=== PATIENT | female | born 1990 | race Caucasian/White ===

== ENCOUNTER 2020-08-31 11:14 | Outpatient (REF) | payer OTHER, SELFPAY ==
--- NOTE | 2020-08-31 11:17 | XR_ITS ---
EXAMINATION: XR KNEE, LEFT CLINICAL INFORMATION: Displaced bicondylar fracture of left tibia. COMPARISON: 06/30/2020 and 04/06/2020 TECHNIQUE: AP and lateral views of the left knee. FINDINGS: There is osteopenia of visualized bones. There is a minimal left knee effusion. Left knee joint spaces are maintained. The bicondylar tibial plateau fracture shows some sclerosis and no change in alignment or displacement compared to previous study. XR/XR knee LT 2V IMPRESSION: Evidence for healing of left tibial plateau fracture.
== END 2020-08-31 11:15 | disposition home or self-care (01) ==
LOC: HO.XRAY 11:14
PROVIDERS: Visit Provider Physician Assistant
DX: S82.142D Displaced bicondylar fracture of left tibia, subsequent encounter for closed fracture with routine healing (principal); X58.XXXD Exposure to other specified factors, subsequent encounter
CPT/HCPCS: 73560; 99213

== ENCOUNTER 2020-09-22 15:54 | Outpatient (REF) | payer OTHER, SELFPAY ==
--- NOTE | 2020-09-22 16:00 | MR_ITS ---
EXAMINATION: MR KNEE WITHOUT CONTRAST, LEFT CLINICAL INFORMATION: Displaced bicondylar fracture of the tibia. COMPARISON: Radiographs dated 08/31/2020 TECHNIQUE: MRI of the knee without contrast was performed using routine sequences on a high-field scanner. FINDINGS: MENISCI: Medial Meniscus: Intact Lateral Meniscus: Intact LIGAMENTS: Cruciate: ACL is intact. There is mild ACL laxity. PCL is normal. Collateral: Intact EXTENSOR MECHANISM: Insall-Salvati ratio is 1.45, indicating borderline patella patsy. Focal edema signal is present in the inferolateral aspect of the prefemoral fat pad. Hoffa's fat pad is unremarkable. ARTICULAR CARTILAGE/BONE: Again seen is an avulsion fracture at the tibial spines with slight cephalad displacement of the fracture fragments anteriorly and depression at the posterior margin of the lateral tibial plateau. The fracture line appears less pronounced as compared to prior studies, although there is mild residual edema signal along it. Osseous bridging is evident across the fracture site. Patellofemoral Compartment: Normal Medial Compartment: There is a longitudinal chondral fissure along the oblique tibial articular cortical fracture line at the medial margin of the medial tibial spine. Lateral Compartment: There is focal depression and posterior downsloping of the posterior margin of the lateral tibial plateau without a significant articular cortical step-off. Overlying articular cartilage is intact. The fracture line at the lateral tibial spine abuts the articular cortex along its far anterior margin, though the lateral compartment is otherwise relatively well preserved. JOINT FLUID AND BURSAE: Trace effusion. No bursitis. MR/MR knee LT wo con IMPRESSION: 1. Healing avulsion fracture at the tibial spines with a chondral fissure along the fracture line at the lateral aspect of the medial tibial plateau articular surface. 2. Healed articular cortical depression deformity at the posterior margin of the lateral tibial plateau. 3. Mild laxity of the ACL, consistent with the tibial spine avulsion injury. No tears. 4. Borderline patella patsy.
== END 2020-09-22 15:55 | disposition home or self-care (01) ==
LOC: HO.MRI 15:54
PROVIDERS: Visit Provider Physician Assistant
DX: S82.143D Displaced bicondylar fracture of unspecified tibia, subsequent encounter for closed fracture with routine healing (principal)
CPT/HCPCS: 73721

== ENCOUNTER 2020-10-09 16:00 | Outpatient (RCR) | payer OTHER, SELFPAY ==
--- NOTE | 2020-11-07 10:13 | MHC.PT.DC ---
[facility] [place] Office [place] Office [place] [facility] [address] Matilde Rahman [address] [phone] F: [phone] F: [phone] F: [phone] F: [phone] Physical Therapy Discharge Report Diagnosis: Closed fx L tibial plateau Date of Surgery: NA Date of Evaluation: 05/23/20 Date of Discharge: 11/07/20 Treatments to Date: 27 Cancellations to Date: 2 No Shows to Date: 0 Discharge Status: Achieved Goals Improved Function Independent with HEP Discharge Summary: Patient with normal ROM. She demos normal gait as well. She has some quad weakness however at this point should be able to continue HEP on own at home or at the gym as she has had 27 visits. No skilled PT is needed at this time. Educated her on healing processes after fx and the importance of continuing to strengthen on own. DC to HEP at this time. Updated HEP at the last tx session. Kept chart open for 30 days in case patient needed assist with HEP. Electronically signed by: Jessica Mckenzie PT Please sign and return to therapist. Thank you for your referral.
== END 2020-11-07 10:13 | disposition home or self-care (01) ==
LOC: HO.PTCHIC 16:00
PROVIDERS: PCP Internal Medicine; Visit Provider Physician Assistant
DX: S82.142D Displaced bicondylar fracture of left tibia, subsequent encounter for closed fracture with routine healing (principal)
CPT/HCPCS: 97110

== ENCOUNTER 2020-11-06 10:38 | Outpatient (REF) | payer OTHER, SELFPAY ==
--- NOTE | 2020-11-06 10:44 | XR_ITS ---
EXAMINATION: XR WRIST, RIGHT CLINICAL INFORMATION: Right wrist pain COMPARISON: None TECHNIQUE: The right wrist is imaged in 3 views. FINDINGS: There is no visible acute or healing fracture, dislocation, or destructive process. The ulnar variance is neutral. The pronator quadratus fat pad appears normal. There is no joint narrowing or erosive change. No chondrocalcinosis. XR/XR wrist RT 2V IMPRESSION: Unremarkable right wrist.
[2020-11-06 12:11] LABS: MANUAL DIFF FLAG NO
[2020-11-06 12:13] LABS: Basophils Percent Auto 0.3 % (0-2); Eosinophils Absolute Auto 0.1 X10*3/uL (0.0-0.4); Eosinophils Percent Auto 1.9 % (0-4); Hematocrit 43.1 % (37-47); Imm Gran Abs Auto 0.02 X10*3/uL (0.00-0.03); Imm Gran Pct Auto 0.3 % (0.0-0.4); Lymphocytes Absolute Auto 2.6 X10*3/uL (1.2-4.9); Lymphocytes Percent Auto 37.6 % (20-40); Mean Corpuscular HGB Conc 32.5 g/dl (31.0-35.0); Mean Corpuscular Hemoglobin 30.3 pg (27.0-33.0); Mean Corpuscular Volume 93.3 fL (80-98); Mean Platelet Volume 10.7 fL (9.4-12.3); Monocytes Absolute Auto 0.4 X10*3/uL (0.1-1.2); Monocytes Percent Auto 5.7 % (2-11); Neutrophils Absolute Auto 3.7 X10*3/uL (2.0-8.3); Neutrophils Percent Auto 54.2 % (45-73); Platelet Count 278 X10*3/uL (160-400); Red Blood Count 4.62 X10*6/uL (4.20-5.50); Red Cell Distribution Width 12.6 % (11.0-16.0); White Blood Count 6.8 X10*3/uL (4.8-10.8)
[2020-11-06 12:35] LABS: Anion Gap 11 (12-20); Blood Urea Nitrogen 13 mg/dL (9-16); Calcium 8.5 mg/dL (8.4-10.2); Carbon Dioxide 25 mmol/L (22-29); Chloride 107 mmol/L (96-108); Cholesterol 171 mg/dL; Estimated Glomerular Filt Rate > 60; Glucose Fasting 102 mg/dL (60-99); HDL Cholesterol 38 mg/dL; LDL Cholesterol Calculated 109 mg/dl; Potassium 4.2 mmol/l (3.3-5.1); Sodium 139 mmol/L (135-145); Triglycerides 120 mg/dL
== END 2020-11-06 10:39 | disposition home or self-care (01) ==
LOC: HO.LAB 10:38
PROVIDERS: Visit Provider Nurse Practitioner Family
DX: Z00.00 Encounter for general adult medical examination without abnormal findings (principal); Z13.220 Encounter for screening for lipoid disorders; M25.531 Pain in right wrist
CPT/HCPCS: 36415; 73100; 80048; 80061; 85025

== ENCOUNTER 2021-02-20 08:32 | Outpatient (REF) | payer OTHER, SELFPAY | END 2021-02-20 08:33 | disposition home or self-care (01) | LOC: HO.LAB 08:32 | PROVIDERS: Visit Provider Nurse Practitioner Family | DX: A60.09 Herpesviral infection of other urogenital tract (principal); J02.9 Acute pharyngitis, unspecified | CPT/HCPCS: 87071; 87147; 87255 ==

== ENCOUNTER 2021-02-20 08:54 | Outpatient (REF) | payer OTHER, SELFPAY ==
[2021-02-20 11:29] LABS: Monotest Negative (Negative)
[2021-02-21 09:31] LABS: EBV-VCA IgG Ab >750.00 U/mL; EBV-VCA IgM Ab <36.00 U/mL
== END 2021-02-20 08:55 | disposition home or self-care (01) ==
LOC: HO.HMGCLDS 08:54
PROVIDERS: Visit Provider Nurse Practitioner Family
DX: J02.9 Acute pharyngitis, unspecified (principal)
CPT/HCPCS: 36415; 86308; 86664; 86665

== ENCOUNTER 2021-03-16 11:22 | Outpatient (REF) | payer OTHER, SELFPAY ==
[2021-03-17 11:58] LABS: BV Int Neg Control Negative (Negative); BV Int Pos Control Positive (Positive)
== END 2021-03-16 11:23 | disposition home or self-care (01) ==
LOC: HO.LNP 11:22
PROVIDERS: Visit Provider Hospitalist
DX: N89.8 Other specified noninflammatory disorders of vagina (principal)
CPT/HCPCS: 87480; 87510; 87660

== ENCOUNTER 2021-04-18 08:04 | Outpatient (REF) | payer OTHER, SELFPAY ==
[2021-04-18 14:00] LABS: CT PCR NOT DETECTED (Not Detect.); NG PCR NOT DETECTED (Not Detect.)
[2021-04-19 09:39] LABS: BV Int Neg Control Negative (Negative); BV Int Pos Control Positive (Positive)
[2021-04-22 14:11] LABS: HPV 16 RNA NOT DETECTED (NOT DETECTED); HPV mRNA E6/E7 rflx Detected (Not Detected)
== END 2021-04-18 08:05 | disposition home or self-care (01) ==
LOC: HO.LAB 08:04
PROVIDERS: PCP Internal Medicine; Visit Provider Advanced Practice Midwife
DX: Z01.411 Encounter for gynecological examination (general) (routine) with abnormal findings (principal); Z11.51 Encounter for screening for human papillomavirus (HPV); N89.8 Other specified noninflammatory disorders of vagina; A60.09 Herpesviral infection of other urogenital tract; G43.909 Migraine, unspecified, not intractable, without status migrainosus; Z20.2 Contact with and (suspected) exposure to infections with a predominantly sexual mode of transmission
CPT/HCPCS: 87480; 87491; 87510; 87591; 87624; 87625; 87660; 88142

== ENCOUNTER 2021-09-05 09:24 | Outpatient (REF) | payer OTHER, SELFPAY ==
[2021-09-05 11:58] LABS: Alanine Aminotransferase 17 U/L (0-31); Aspartate Amino Transferase 16 U/L (5-31); Cholesterol 178 mg/dL; Glucose Fasting 93 mg/dL (60-99); HDL Cholesterol 34 mg/dL; LDL Cholesterol Calculated 125 mg/dl; Triglycerides 95 mg/dL
[2021-09-05 12:22] LABS: TSH reflex Free T4 1.05 uIU/mL (0.32-4.0)
== END 2021-09-05 09:25 | disposition home or self-care (01) ==
LOC: HO.HMGCLDS 09:24
PROVIDERS: PCP Internal Medicine; Visit Provider Internal Medicine
DX: Z00.01 Encounter for general adult medical examination with abnormal findings (principal); R73.01 Impaired fasting glucose; Z80.8 Family history of malignant neoplasm of other organs or systems
CPT/HCPCS: 36415; 80061; 82947; 84443; 84450; 84460

== ENCOUNTER 2021-09-18 16:49 | Emergency (ER) | payer OTHER, SELFPAY ==
[2021-09-18 17:08] VITALS: BP 114/78; PULSE 88; RESP 16; TEMP 36.8; O2SAT 99; BMI 39.6
--- NOTE | 2021-09-18 19:26 | ED.SKABFB ---
HPI - Skin/Abscess/Foreign Bdy General Chief complaint: Skin/Abscess/Foreign Body <KATIE Villar - Last Filed: 09/18/21 20:16> Stated complaint: abscess on back <KATIE Villar - Last Filed: 09/18/21 20:16> Time Seen by Provider: 09/18/21 18:03 <KATIE Villar - Last Filed: 09/18/21 20:16> Source: patient <KATIE Villar - Last Filed: 09/18/21 20:16> Mode of arrival: ambulatory <KATIE Villar - Last Filed: 09/18/21 20:16> Limitations: no limitations <KATIE Villar Last Filed: 09/18/21 20:16> History of Present Illness HPI narrative: 31-year-old female pmhx significant for recurring yeast infection, morbid obesity presents to the emergency department with complaints of vaginal discharge, an abscess to the right lower back X 6 days. Patient states both of these have been going on since Friday of last week. Patient states she was recently treated for yeast infection with Diflucan, however it has not gone away. She describes thick white/yellow vaginal discharge. She also notes vaginal odor. She states that 6 days ago she also developed an abscess to the right lower back, that has been progressively worsening in severity, in size. Patient denies fevers, chills, shortness of breath, nausea, vomiting, abdominal pain, chest pain, shortness of breath, weakness, urinary frequency/urgency. Patient does not think she has an STI, she states she is not sexually active. <KATIE Villar - Last Filed: 09/18/21 20:16> MD complaint: abscess/boil <KATIE Villar - Last Filed: 09/18/21 20:16> Onset (ago): day(s) (6) <KATIE Villar Last Filed: 09/18/21 20:16> Tetanus up to date: unsure <KATIE Villar Last Filed: 09/18/21 20:16> Location: back <KATIE Villar - Last Filed: 09/18/21 20:16> Severity: severe <KATIE Villar - Last Filed: 09/18/21 20:16> Severity scale (1-10): 10 <KATIE Villar - Last Filed: 09/18/21 20:16> Quality: burning <KATIE Villar - Last Filed: 09/18/21 20:16> Pain Consistency: constant <KATIE Villar - Last Filed: 09/18/21 20:16> Relieving factors: none <KATIE Villar - Last Filed: 09/18/21 20:16> Exacerbating factors: none <KATIE Villar - Last Filed: 09/18/21 20:16> Context: none <KATIE Villar - Last Filed: 09/18/21 20:16> Treatments prior to arrival: none and other (Fluconazole 100 mg X2 prescribed on 09/12/21) <KATIE Villar - Last Filed: 09/18/21 20:16> Related Data Home medications: Home Medications Medication Instructions Recorded Confirmed etonogestrel 68 mg subdermal SUBDERMAL 09/29/20 09/05/21 implant (Nexplanon) Previous Rx's Medication Instructions Recorded cetirizine 10 mg tablet 10 mg PO DAILY 30 Days #30 tab 04/10/21 valacyclovir 500 mg tablet 500 mg PO BID 3 Days #60 tab 04/18/21 (Valtrex) diclofenac sodium 1 % topical gel 4 g TOPICAL TID PRN #100 g 07/20/21 ibuprofen 800 mg tablet 800 mg PO Q12H PRN #60 tab 07/20/21 fluconazole 100 mg tablet 100 mg PO DAILY 2 Days #2 tab 09/12/21 (Diflucan) cephalexin 500 mg capsule 500 mg PO Q6H 10 Days #40 cap 09/18/21 doxycycline hyclate 100 mg capsule 100 mg PO BID 10 Days #20 cap 09/18/21 fluconazole 150 mg tablet 150 mg PO ONCE 1 Days #1 tab 09/18/21 metronidazole 500 mg tablet 500 mg PO BID 7 Days #14 tab 09/18/21 <KATIE Villar - Last Filed: 09/18/21 20:16> Allergies/Adverse reactions: Allergies Allergy/AdvReac Type Severity Reaction Status Date / Time SEASONAL ALLERGIES Allergy Unknown UNKNOWN Uncoded 09/18/21 18:02 <KATIE Villar - Last Filed: 09/18/21 20:16> Review of Systems Review of Systems: Constitutional : No Weight loss, No Fever, No Chills, No Fatigue, No Malaise ENT/Mouth : No sore throat, No Rhinorrhea Eyes: No Eye Pain, No Swelling, No Redness Cardiovascular : No Chest Pain, No SOB, No Dyspnea on Exertion, No Orthopnea, No Edema, No Palpitations Respiratory : No Cough, No Sputum, No Wheezing Gastrointestinal : No Nausea, No Vomiting, No Diarrhea, No Constipation, No abdominal Pain, No Hematochezia, No Melena Genitourinary : No Dysuria, No Urinary Frequency, No Hematuria, + vaginal discharge Musculoskeletal : No joint pain, No Myalgias, No Joint Swelling Skin : No Skin Lesions, No rash, + abcess Neuro : No Weakness, No Numbness, No Dizziness, No Headache All other systems reviewed and are negative <KATIE Villar - Last Filed: 09/18/21 20:16> [facility] Past Medical History Attestation statement: The following information was validated with the patient. <KATIE Villar - Last Filed: 09/18/21 20:16> Source: old records reviewed and nursing notes reviewed <KATIE Villar - Last Filed: 09/18/21 20:16> Medical History: Medical History Acne comedone Family history of thyroid cancer Impaired fasting glucose Left anterior knee pain Migraines Morbid obesity Nasal congestion Nose disorder Tension type headache Wrist pain, right <KATIE Villar - Last Filed: 09/18/21 20:16> Surgical History: Surgical History No pertinent past surgical history <KATIE Villar Last Filed: 09/18/21 20:16> Family History Family History: Family History Father No problems noted. Mother Hypertension Maternal Grandfather Alzheimers disease Parkinsons Sister Acute Crohn's disease with complication Diabetes mellitus Maternal Grandmother Skin cancer Thyroid cancer Brother Mental health disorder <KATIE Villar - Last Filed: 09/18/21 20:16> Social History Social History: Social History (Reviewed 09/05/21 @ 09: by Mary Agarwal MD) Housing: Apartment Patient Tobacco Use Status: Never used Tobacco e-Cigarette/Vaping Use: Never Used Second Hand Smoke Exposure: No Advance Directives: No Advance Directives Information Provided: No Patient : No service: No Current occupational status: employed <KATIE Villar - Last Filed: 09/18/21 20:16> Physical Exam Vital Signs: Vital Signs: Last Vital Signs Temp 98.5 F 09/18/21 20:03 Pulse 101 H 09/18/21 20:03 Resp 18 09/18/21 20:03 BP 118/69 09/18/21 20:03 Pulse Ox 98 09/18/21 20:03 Body Mass Index 39.6 <KATIE Villar - Last Filed: 09/18/21 20:16> Vital Signs: Last Vital Signs Temp 98.5 F 09/18/21 20:03 Pulse 101 H 09/18/21 20:03 Resp 18 09/18/21 20:03 BP 118/69 09/18/21 20:03 Pulse Ox 98 09/18/21 20:03 Body Mass Index 39.6 <KATIE Last - Last Filed: 09/18/21 19:56> Appearance: Alert.? Oriented X3.? No acute distress.? Eyes: Pupils equal, round and reactive to light.? ENT: Pharynx normal.? Neck: Normal inspection.? Neck supple.? CVS: Normal heart rate and rhythm.? Pulses normal.? Respiratory: No respiratory distress.? Breath sounds normal.? Abdomen: Soft and nontender.? Skin: Skin warm and dry.? Normal skin color.? Normal skin turgor.?+ Abscess noted to the right lower back about 5 cm in diameter with overlying skin erythema and slight calor, fluctuant upon palpation Extremities: No lower extremity edema.? No calf ttp Neuro: Oriented X 3.? No motor deficit.? No sensory deficit. <KATIE Villar Last Filed: 09/18/21 20:16> Course Course Course Narrative: I agree with this provider's history and physical/review of systems/orders/diagnosis/procedure and treatment plan for Bolivar Cortez PA-C <KATIE Last - Last Filed: 09/18/21 19:56> Reevaluation(s) Reevaluation #1: Incision and drainage was done at the bedside, serosanguineous fluid, and possibly about 10 cc were expressed. Patient tolerated procedure well, no complications. There is no packing put in. Labs revealed positive Trichomonas. Discharged home on doxycycline and Keflex for prophylaxis. And she will be given metronidazole p.o. b.i.d. 500 mg to cover for Trichomonas. Gonorrhea and chlamydia pending, she will be called only with positive results. She has been advised to follow-up with her primary care provider and return to the emergency department with new or worsening symptoms such as fevers, chills, shortness of breath, chest pain, abdominal pain, worsening pain to the site, or streaking. <KATIE Villar Last Filed: 09/18/21 20:16> Time: 19:35 <KATIE Villar Last Filed: 09/18/21 20:16> Reevaluation #2: Urine shows 3+ leukocyte esterase, negative nitrates, urine negative. Patient is safe for discharge home <KATIE Villar Last Filed: 09/18/21 20:16> Time: 20:13 <KATIE Villar Last Filed: 09/18/21 20:16> MDM - Skin/Abscess/Foreign Bdy MDM Narrative Medical decision making narrative: 1918 31-year-old female past medical history significant for obesity, and recurring yeast infections presents to the emergency department with vaginal discharge, and an abscess to the right lower back x6 days. Patient took Diflucan 100 mg p.o. x2 on 09/12/2021 without relief. Patient states she is not sexually activ. Patient denies fevers, chills, shortness of breath, abdominal pain, nausea, vomiting, chest pain. Upon physical examination an abcess noted to the right lower back about 5 cm in diameter with overlying skin erythema and slight calor, fluctuant upon palpation. Lungs are clear to auscultation bilaterally. S1-S2 appreciated free of murmurs. Abdomen soft nontender nondistended. No CVA tenderness. Patient deferred vaginal exam, she states she is not sexually active, and does not believe she has an STD. Plan at this time is to obtain gonorrhea, chlamydia, Trichomonas, BV, urine, urine and do a bedside incision and drainage. <KATIE Villar - Last Filed: 09/18/21 20:16> Lab Data Labs: Lab Results 09/18/21 09/18/21 Range/Units 20:04 20:04 Urine Color YELLOW Urine Appearance CLOUDY Urine pH 6.0 (5.0-8.0) Ur Specific [place] 1.025 (1.005-1.025) Urine Protein NEG (NEG-TRACE) MG/DL Urine Glucose (UA) NEG (NEG) MG/DL Urine Ketones NEG (NEG) MG/DL Urine Blood TRACE (NEG) Urine Nitrite NEG (NEG) Ur Leukocyte Esterase 3+ H (NEG) Urine Test NEGATIVE (NEGATIVE) <KATIE Villar - Last Filed: 09/18/21 20:16> Lab Results 09/18/21 09/18/21 Range/Units 20:04 20:04 Urine Color YELLOW Urine Appearance CLOUDY Urine pH 6.0 (5.0-8.0) Ur Specific [place] 1.025 (1.005-1.025) Urine Protein NEG (NEG-TRACE) MG/DL Urine Glucose (UA) NEG (NEG) MG/DL Urine Ketones NEG (NEG) MG/DL Urine Blood TRACE (NEG) Urine Nitrite NEG (NEG) Ur Leukocyte Esterase 3+ H (NEG) Urine Test NEGATIVE (NEGATIVE) <KATIE Last - Last Filed: 09/18/21 19:56> Procedures Abscess I/D Site: back <KATIE Villar Last Filed: 09/18/21 20:16> Local Anesthetic: lidocaine 1% <KATIE Villar - Last Filed: 09/18/21 20:16> Amount of anesthesia used (mL): 5 <KATIE Villar - Last Filed: 09/18/21 20:16> Technique: incised with blade <KATIE Villar - Last Filed: 09/18/21 20:16> Amount of fluid expressed (mL): 10 <KATIE Villar - Last Filed: 09/18/21 20:16> Sent for culture/gram staining?: No <KATIE Villar - Last Filed: 09/18/21 20:16> Irrigation: Yes <KATIE Villar - Last Filed: 09/18/21 20:16> Packing used?: none <KATIE Villar - Last Filed: 09/18/21 20:16> Discharge Plan Discharge Clinical Impression: Infection due to trichomonas, Cellulitis, Abscess <KATIE Villar - Last Filed: 09/18/21 20:16> Patient Disposition: Home, Self-Care <KATIE Villar - Last Filed: 09/18/21 20:16> Instructions: Sexually Transmitted Diseases (ED), Trichomoniasis (ED) <KATIE Villar - Last Filed: 09/18/21 20:16> Additional Instructions: Take your medications as prescribed. If you were prescribed antibiotics today, it is important that you take your medication to their entirety, do not skip any doses, do not finish them early. Your gonorrhea, and chlamydia tests are still pending at this time, ypu will only receive a phone call if these are positive. Take ibuprofen every 6 hours, tylenol every 4 hours. Follow-up with your primary care provider this week. Return to the emergency department with new or worsening symptoms. In case of emergency call 911 <KATIE Villar - Last Filed: 09/18/21 20:16> Prescriptions: New cephalexin 500 mg capsule 500 mg PO Q6H 10 Days Qty: 40 RF: 0 doxycycline hyclate 100 mg capsule 100 mg PO BID 10 Days Qty: 20 RF: 0 metronidazole 500 mg tablet 500 mg PO BID 7 Days Qty: 14 RF: 0 fluconazole 150 mg tablet 150 mg PO ONCE 1 Days Qty: 1 RF: 0 No Action cetirizine 10 mg tablet 10 mg PO DAILY 30 Days Qty: 30 RF: 0 diclofenac sodium 1 % gel 4 g topical TID PRN (Reason: knee pain) Qty: 100 RF: 0 ibuprofen 800 mg tablet 800 mg PO Q12H PRN (Reason: pain) Qty: 60 RF: 0 Nexplanon 68 mg implant subdermal RF: 0 fluconazole [Diflucan] 100 mg tablet 100 mg PO DAILY 2 Days Qty: 2 RF: 0 valacyclovir [Valtrex] 500 mg tablet 500 mg PO BID 3 Days Qty: 60 RF: 5 <KATIE Villar - Last Filed: 09/18/21 20:16> Referrals: Physician,Unknown J [Primary Care Provider] - 2 days <KATIE Villar - Last Filed: 09/18/21 20:16> Stand Alone Forms: Work/School Release <KATIE Villar - Last Filed: 09/18/21 20:16>
[2021-09-18] MEDS: Lidocaine HCl 1 % MPF 5 ML VIAL SUBCUT ×2 (19:33→19:34)
[2021-09-18] MEDS: Ketorolac Tromethamine 15 MG/ML VIAL 30 MG IM (19:48)
[2021-09-18 20:03] VITALS: BP 118/69; PULSE 101; RESP 18; TEMP 36.9; O2SAT 98
[2021-09-18 20:11] LABS: Appearance Urine CLOUDY; Color Urine YELLOW; Glucose Urine UA NEG (NEG); Leukocyte Esterase Urine 3+ (NEG); Nitrite Urine NEG (NEG); Specific Gravity - Urine 1.025 (1.005-1.025); UACC Culture Trigger YES; Urine Blood TRACE (NEG); Urine Ketones NEG (NEG); Urine Protein NEG (NEG-TRACE)
[2021-09-18 20:12] LABS: UPreg QC Valid YES; Urine Pregnancy NEGATIVE (NEGATIVE)
[2021-09-18 20:15] LABS: Bacteria Urine TRACE /LPF; Mucus Urine 2+ /LPF; Renal Epithelial Cells Urine TRACE /LPF; Squamous Epithelial Cell Urine 2+ /LPF
[2021-09-19 03:11] LABS: CT PCR NOT DETECTED (Not Detect.); NG PCR NOT DETECTED (Not Detect.)
[2021-09-19 10:01] LABS: BV Int Neg Control Negative (Negative); BV Int Pos Control Positive (Positive)
== END 2021-09-18 20:34 | disposition home or self-care (01) ==
PROVIDERS: Physician Assistant Medical; Emergency Provider Emergency Medicine
DX: A59.9 Trichomoniasis, unspecified (principal); L03.312 Cellulitis of back [any part except buttock and flank]; L02.212 Cutaneous abscess of back [any part, except buttock and flank]; E66.01 Morbid (severe) obesity due to excess calories
CPT/HCPCS: 10060; 81001; 81025; 87086; 87480; 87491; 87510; 87591; 87660; 96372; 99284; J1885

== ENCOUNTER 2021-10-14 06:44 | Emergency (ER) | payer OTHER, SELFPAY ==
[2021-10-14 06:46] VITALS: BP 107/62; PULSE 95; RESP 16; TEMP 36.7; O2SAT 97; BMI 37.9
[2021-10-14 07:19] LABS: COVID-19 Test Negative (Negative); IDNOW Serial# 9DD0AD1C; Strep A Nucleic Acid Negative (Negative)
[2021-10-14] MEDS: predniSONE 20 MG TABLET 60 MG PO (09:34)
[2021-10-14] MEDS: Penicillin V Potassium 250 MG TABLET 500 MG PO (09:34)
--- NOTE | 2021-10-14 12:09 | ED_ITS ---
HPI - URI/Sore Throat General Chief Complaint: Upper Respiratory Symptoms Stated Complaint: possible strep throat Time Seen by Provider: 10/14/21 08:37 Source: patient Mode of arrival: ambulatory Limitations: no limitations History of Present Illness HPI Narrative: 31-year-old female with a history of strep throat presents with 8/10 sore throat that started yesterday. Patient has also had a mild cough and nasal congestion. Patient states she can swallow fluids and solids, but hurts to swallow. Patient is able to open her mouth all the way. MD elicited complaint: sore throat Onset (ago): day(s) (1) Consistency: constant Severity: severe Pain scale (0-10): 8 Able to tolerate fluids by mouth: Yes Exacerbating factors: swallowing Relieving factors: nothing Associated symptoms: chills, headache, nasal congestion, sore throat and cough Treatments prior to arrival: none Related Data Home Medications Medication Instructions Recorded Confirmed etonogestrel 68 mg subdermal SUBDERMAL 09/29/20 09/26/21 implant (Nexplanon) Previous Rx's Medication Instructions Recorded cetirizine 10 mg tablet 10 mg PO DAILY 30 Days #30 tab 04/10/21 valacyclovir 500 mg tablet 500 mg PO BID 3 Days #60 tab 04/18/21 (Valtrex) diclofenac sodium 1 % topical gel 4 g TOPICAL TID PRN #100 g 07/20/21 ibuprofen 800 mg tablet 800 mg PO Q12H PRN #60 tab 07/20/21 cephalexin 500 mg capsule 500 mg PO Q6H 10 Days #40 cap 09/18/21 doxycycline hyclate 100 mg capsule 100 mg PO BID 10 Days #20 cap 09/18/21 fluconazole 150 mg tablet 150 mg PO ONCE 1 Days #1 tab 09/18/21 metronidazole 500 mg tablet 500 mg PO BID 7 Days #14 tab 09/18/21 nystatin-triamcinolone 100,000 1 appl TOPICAL BID 10 Days #30 g 09/26/21 unit/g-0.1 % topical cream sertraline 50 mg tablet 50 mg PO DAILY #30 tab 09/26/21 penicillin V potassium 500 mg 500 mg PO TID 10 Days #30 tab 10/14/21 tablet prednisone 20 mg tablet 60 mg PO DAILY 5 Days #15 tab 10/14/21 Allergies Allergy/AdvReac Type Severity Reaction Status Date / Time SEASONAL ALLERGIES Allergy Unknown UNKNOWN Uncoded 09/18/21 18:02 Review of Systems Constitutional: Constitutional: Denies body ache(s), Reports chills, Reports fatigue, Denies fever(s), Reports headache(s), Reports malaise and Denies weakness Eyes: Eyes: Denies diplopia ENT: Denies vertigo, Denies dizziness, Reports otalgia, Reports headache(s), Denies mouth pain, Reports nasal congestion, Reports nasal discharge, Reports post nasal drip, Denies sinus pain, Denies sinus pressure, Reports sore throat and Denies throat swelling Cardiovascular: Cardiovascular: Denies chest pain, Denies syncope, Denies leg edema, Denies lightheadedness, Denies Loss of Consciousness, Denies palpitations and Denies dyspnea Respiratory: Respiratory: Denies chest congestion, Reports cough and Denies dyspnea Gastrointestinal: Gastrointestinal: Denies abdominal pain, Denies hematochezia, Denies constipation, Denies diarrhea and Denies vomiting Musculoskeletal: Musculoskeletal: Reports no additional musculoskeletal complaints Neurologic: Denies confusion, Denies vertigo, Denies dizziness, Denies syncope, Reports headache(s) and Denies weakness Psychiatric: Psychiatric: Denies anxiety, Denies confusion and Denies depression Endocrine: Endocrine: Reports fatigue and Denies palpitations Allergic/Immunologic: Allergic/Immunologic: Denies throat swelling PMFSH Past Medical History Medical History Acne comedone Depression with anxiety Family history of thyroid cancer History of abscess of skin and subcutaneous tissue Impaired fasting glucose Left anterior knee pain Migraines Morbid obesity Nasal congestion Nose disorder Tension type headache Wrist pain, right Surgical History No pertinent past surgical history Family History Family History Father No problems noted. Mother Hypertension Maternal Grandfather Alzheimers disease Parkinsons Sister Acute Crohn's disease with complication Diabetes mellitus Maternal Grandmother Skin cancer Thyroid cancer Brother Mental health disorder Social History Social History Housing: Apartment Patient Tobacco Use Status: Never used Tobacco e-Cigarette/Vaping Use: Never Used Second Hand Smoke Exposure: No Advance Directives: No Advance Directives Information Provided: Yes Patient : No service: No Current occupational status: employed Physical Exam Vital Signs: Vital Signs: Last Vital Signs Temp 98.0 F 10/14/21 06:46 Pulse 95 10/14/21 06:46 Resp 16 10/14/21 06:46 BP 107/62 10/14/21 06:46 Pulse Ox 97 10/14/21 06:46 BMI result Body Mass Index 37.9 Const: General: no acute distress, alert and awake; No confusion Nutritional Appearance: well nourished and obese centrally obese Orientation/consciousness: patient oriented x3 and No confusion Limitations: no limitations HENMT: Head: Yes normal to inspection, Yes normocephalic and Yes atraumatic Ears: hearing grossly normal bilaterally, external ears normal, TM's normal bilaterally and EAC's normal General nose exam: Normal external nose present Face and sinus: Yes normal facial exam and Yes sinuses nontender Mouth: Normal oral and palatal mucosa present, no audible dysphonia, no drooling and no trismus Throat: Yes uvula midline, Yes abnormal tonsil, Yes posterior oropharynx abnormal, No uvula laterally displaced and No uvular edema Throat image: 1. Erythematous hypertrophic tonsil with exudate Eyes: Conjunctivae: conjunctivae normal Pupils: Equal, round and reactive pupils present EOM: EOMs intact bilaterally Neck: Neck: Yes full ROM, Yes no lymphadenopathy and Yes supple Resp: Effort & Inspection: normal respiratory effort and able to speak in complete sentences Auscultation: clear to auscultation bilaterally, no crackles, no rales, no rhonchi and no wheezes Cardio: Rate: regular rate Rhythm: regular rhythm Heart sounds: S1 normal heart sound present and S2 normal heart sound present GI: Inspection: Yes normal to inspection Palpation (GI): Soft to palpation, nontender, no guarding and not rigid Percussion: Yes normal to percussion Auscultation: normal bowel sounds Skin: General skin exam: no rashes or lesions noted Neuro: General: patient oriented x3 and No confusion Cranial nerves: Yes Equal, round and reactive pupils present Extrem: General: Yes normal to inspection and Yes full ROM Psych: Appearance: grossly normal Affect: normal affect Attitude: cooperative Thought process: Normal thought process present Course Course Course Narrative: 31-year-old female with sore throat that started yesterday. On exam, patient has stable vitals, afebrile, has no trismus, uvula is midline. Patient has erythematous hypertrophic right tonsil with exudate. Will treat with penicillin, prednisone, referred patient for ENT follow-up. MDM - URI/Sore Throat Lab Data Labs: Lab Results 10/14/21 10/14/21 Range/Units 06:52 06:52 COVID-19 (MI) Negative (Negative) COVID-19 Clin Com See Note S. pyogenes GrpA SALLY Negative (Negative) Discharge Plan Discharge Clinical Impression: Acute tonsillitis Qualifiers: Pharyngitis/tonsillitis etiology: unspecified etiology Qualified Code(s): J 03.90 - Acute tonsillitis, unspecified Patient Disposition: Home, Self-Care Instructions: Tonsillitis (ED) Additional Instructions: Please call Dr Naik, ENT doctor at [phone] if you have not heard from his office by tomorrow afternoon. Please take penicillin 3 times a day. Please take prednisone starting tomorrow morning, taken in the morning for the next 5 d ays. Please use salt water gargles. 1 tsp of salt in a couple of warm water gargle and spit. Please use Tylenol and ibuprofen for pain. Please return if you cannot open her mouth, he cannot swallow liquids, if you have fevers, or any new or concerning symptoms Prescriptions: New penicillin V potassium 500 mg tablet 500 mg PO TID 10 Days Qty: 30 RF: 0 prednisone 20 mg tablet 60 mg PO DAILY 5 Days Qty: 15 RF: 0 No Action cetirizine 10 mg tablet 10 mg PO DAILY 30 Days Qty: 30 RF: 0 cephalexin 500 mg capsule 500 mg PO Q6H 10 Days Qty: 40 RF: 0 doxycycline hyclate 100 mg capsule 100 mg PO BID 10 Days Qty: 20 RF: 0 metronidazole 500 mg tablet 500 mg PO BID 7 Days Qty: 14 RF: 0 fluconazole 150 mg tablet 150 mg PO ONCE 1 Days Qty: 1 RF: 0 diclofenac sodium 1 % gel 4 g topical TID PRN (Reason: knee pain) Qty: 100 RF: 0 ibuprofen 800 mg tablet 800 mg PO Q12H PRN (Reason: pain) Qty: 60 RF: 0 Nexplanon 68 mg implant subdermal RF: 0 nystatin-triamcinolone 100,000-0.1 unit/g-% cream 1 appl topical BID 10 Days Qty: 30 RF: 0 sertraline 50 mg tablet 50 mg PO DAILY Qty: 30 RF: 0 valacyclovir [Valtrex] 500 mg tablet 500 mg PO BID 3 Days Qty: 60 RF: 5 Referrals: Desmond Naik [Physician] - 2 days Stand Alone Forms: Work/School Release Interventions: ED Discharge Assessment Last Done: 10/14/21 09:39 Discharge Date/Time: 10/14/21 09:40
== END 2021-10-14 09:40 | disposition home or self-care (01) ==
PROVIDERS: Emergency Provider Emergency Medicine; PCP Internal Medicine
DX: J03.90 Acute tonsillitis, unspecified (principal); Z20.822 Contact with and (suspected) exposure to COVID-19
CPT/HCPCS: 36415; 87635; 87651; 99283

== ENCOUNTER 2021-11-27 12:42 | Outpatient (REF) | payer OTHER, SELFPAY ==
[2021-11-28 04:45] LABS: HBc Num1 0.23 S/CO (0.00-0.79); HIV AB/AG Nonreactive (Nonreactive); HIV Num 1 0.06 S/CO (0.00-0.99); Hepatitis B Core Antibody Nonreactive (Nonreactive); ~HepC Num1 0.07 S/CO (0.00-0.79); ~Hepatitis C Antibody Nonreactive (Nonreactive)
[2021-11-28 04:58] LABS: Syphilis Screen Nonreactive (Nonreactive)
[2021-11-28 05:13] LABS: CT PCR NOT DETECTED (Not Detect.); NG PCR NOT DETECTED (Not Detect.)
[2021-11-28 08:33] LABS: BV Int Neg Control Negative (Negative); BV Int Pos Control Positive (Positive)
== END 2021-11-27 12:43 | disposition home or self-care (01) ==
LOC: HO.LAB 12:42
PROVIDERS: PCP Internal Medicine; Visit Provider Advanced Practice Midwife
DX: N76.0 Acute vaginitis (principal); R30.0 Dysuria; Z20.2 Contact with and (suspected) exposure to infections with a predominantly sexual mode of transmission
CPT/HCPCS: 36415; 81003; 86704; 86780; 86803; 87086; 87147; 87389; 87480; 87491; 87510; 87591; 87660; 99212

== ENCOUNTER 2022-03-13 06:40 | Emergency (ER) | payer OTHER, SELFPAY ==
[2022-03-13 06:57] VITALS: BP 110/68; PULSE 79; RESP 18; TEMP 37; O2SAT 96; BMI 37.8
[2022-03-13 07:26] LABS: IDNOW Serial# 16C4AD1C; Influenza A Negative (Negative); Influenza B2 Negative (Negative); Strep A Nucleic Acid Negative (Negative)
[2022-03-13 07:27] LABS: COVID-19 Test Negative (Negative)
--- NOTE | 2022-03-13 07:50 | ED.URI ---
HPI - URI/Sore Throat General Chief Complaint: Upper Respiratory Symptoms Stated Complaint: Sore throat Time Seen by Provider: 03/13/22 07:46 Source: patient Mode of arrival: ambulatory Limitations: no limitations History of Present Illness MD elicited complaint: sore throat Pertinent past history: other (recurrent tonsillitis) Onset (ago): day(s) (2) Consistency: constant Severity: mild Description of mucous: clear Able to tolerate fluids by mouth: Yes Exacerbating factors: swallowing Relieving factors: nothing Context: other (3 bouts a year) Associated symptoms: sore throat Treatments prior to arrival: none Related Data Home Medications Medication Instructions Recorded Confirmed etonogestrel 68 mg subdermal SUBDERMAL 09/29/20 09/26/21 implant (Nexplanon) Previous Rx's Medication Instructions Recorded cetirizine 10 mg tablet 10 mg PO DAILY 30 Days #30 tab 04/10/21 valacyclovir 500 mg tablet 500 mg PO BID 3 Days #60 tab 04/18/21 (Valtrex) diclofenac sodium 1 % topical gel 4 g TOPICAL TID PRN #100 g 07/20/21 ibuprofen 800 mg tablet 800 mg PO Q12H PRN #60 tab 07/20/21 cephalexin 500 mg capsule 500 mg PO Q6H 10 Days #40 cap 09/18/21 doxycycline hyclate 100 mg capsule 100 mg PO BID 10 Days #20 cap 09/18/21 metronidazole 500 mg tablet 500 mg PO BID 7 Days #14 tab 09/18/21 nystatin-triamcinolone 100,000 1 appl TOPICAL BID 10 Days #30 g 09/26/21 unit/g-0.1 % topical cream sertraline 50 mg tablet 50 mg PO DAILY #30 tab 09/26/21 penicillin V potassium 500 mg 500 mg PO TID 10 Days #30 tab 10/14/21 tablet prednisone 20 mg tablet 60 mg PO DAILY 5 Days #15 tab 10/14/21 fluconazole 150 mg tablet 150 mg PO ONCE 1 Days #1 tab 11/27/21 amoxicillin 875 mg-potassium 1 tab PO BID #14 tab 03/13/22 clavulanate 125 mg tablet Allergies Allergy/AdvReac Type Severity Reaction Status Date / Time SEASONAL ALLERGIES Allergy Unknown UNKNOWN Uncoded 09/18/21 18:02 Review of Systems Review of Systems: Constitutional : no Fever, positive Chills, no fatigue, no Malaise ENT/Mouth : positive sore throat, no runny nose Eyes: No Discharge Cardiovascular : No Chest Pain, No SOB Respiratory : No Cough, No Sputum Gastrointestinal : No Nausea, No Vomiting, No Diarrhea Genitourinary : No Dysuria, No Urinary Frequency Musculoskeletal : no Myalgia Skin : No rash Neuro : No Headache PMFSH Past Medical History Medical History Acne comedone Depression with anxiety Family history of thyroid cancer History of abscess of skin and subcutaneous tissue Impaired fasting glucose Left anterior knee pain Migraines Morbid obesity Nasal congestion Nose disorder Tension type headache Wrist pain, right Surgical History No pertinent past surgical history Family History Family History Father No problems noted. Mother Hypertension Maternal Grandfather Alzheimers disease Parkinsons Sister Acute Crohn's disease with complication Diabetes mellitus Maternal Grandmother Skin cancer Thyroid cancer Brother Mental health disorder Social History Social History Housing: Apartment Patient Tobacco Use Status: Never used Tobacco e-Cigarette/Vaping Use: Never Used Second Hand Smoke Exposure: No Advance Directives: No Advance Directives Information Provided: Yes service: No Current occupational status: employed Physical Exam Vital Signs: Vital Signs: Last Vital Signs Temp 98.6 F 03/13/22 06:57 Pulse 79 03/13/22 06:57 Resp 18 03/13/22 06:57 BP 110/68 03/13/22 06:57 Pulse Ox 96 03/13/22 06:57 BMI result Body Mass Index 37.8 Appearance: Alert. Oriented X3. No acute distress. Eyes: Pupils equal, round and reactive to light. ENT: Pharynx mild generalized erythema with white patches on R tonsil moderate swelling uvula midline normal voice tolerating secretions Neck: Normal inspection. Neck supple. CVS: Normal heart rate and rhythm. Pulses normal. Respiratory: No respiratory distress. Breath sounds normal. Abdomen: Soft and nontender. Skin: Skin warm and dry. Normal skin color. Normal skin turgor. Extremities: No lower extremity edema. Neuro: Oriented X 3. No motor deficit. No sensory deficit. MDM - URI/Sore Throat MDM Narrative Medical decision making narrative: 31 yo female with hx of recurrent tonsillitis here with swelling, erythema, patches at this time consistent with tonsillitis - at this time has appointment with ENT next month. Will give dexamethasone for swelling, augmentin for infection. Uvula is midline, normal voice and secretions. no signs of deeper space infection. Lab Data Labs: Lab Results 03/13/22 03/13/22 03/13/22 Range/Units 07:02 07:02 07:02 COVID-19 (MI) Negative (Negative) COVID-19 Clin Com See Note Influenza Type A (SALLY) Negative (Negative) Influenza Type B (SALLY) Negative (Negative) Influenza A & B Note See Note S. pyogenes GrpA SALLY Negative (Negative) Discharge Plan Discharge Clinical Impression: Acute tonsillitis Qualifiers: Pharyngitis/tonsillitis etiology: other specified organisms Qualified Code(s): J03.80 - Acute tonsillitis due to other specified organisms Patient Disposition: Home, Self-Care Instructions: Tonsillitis (ED) Additional Instructions: return to ED for any worsening symptoms or concerns steroids will last 3 to 5 days in your system follow up with ENT negative for flu, covid and strep Prescriptions: New amoxicillin-pot clavulanate 875-125 mg tablet 1 tab PO BID Qty: 14 0RF No Action cetirizine 10 mg tablet 10 mg PO DAILY 30 Days Qty: 30 0RF penicillin V potassium 500 mg tablet 500 mg PO TID 10 Days Qty: 30 0RF prednisone 20 mg tablet 60 mg PO DAILY 5 Days Qty: 15 0RF cephalexin 500 mg capsule 500 mg PO Q6H 10 Days Qty: 40 0RF doxycycline hyclate 100 mg capsule 100 mg PO BID 10 Days Qty: 20 0RF metronidazole 500 mg tablet 500 mg PO BID 7 Days Qty: 14 0RF diclofenac sodium 1 % gel 4 g topical TID PRN (Reason: knee pain) Qty: 100 0RF Rx Instructions: apply to single knee ibuprofen 800 mg tablet 800 mg PO Q12H PRN (Reason: pain) Qty: 60 0RF Nexplanon 68 mg implant subdermal 0RF nystatin-triamcinolone 100,000-0.1 unit/g-% cream 1 appl topical BID 10 Days Qty: 30 0RF sertraline 50 mg tablet 50 mg PO DAILY Qty: 30 0RF valacyclovir [Valtrex] 500 mg tablet 500 mg PO BID 3 Days Qty: 60 5RF Rx Instructions: take twice a day for 3 days, repeat as needed fluconazole 150 mg tablet 150 mg PO ONCE 1 Days Qty: 1 1RF
[2022-03-13] MEDS: dexAMETHasone sod phosphate 4 MG/ML VIAL 8 MG PO (08:16)
== END 2022-03-13 08:20 | disposition home or self-care (01) ==
PROVIDERS: Emergency Provider Emergency Medicine; PCP Internal Medicine
DX: J03.80 Acute tonsillitis due to other specified organisms (principal); Z20.822 Contact with and (suspected) exposure to COVID-19
CPT/HCPCS: 36415; 87502; 87635; 87651; 99283; J1100

== ENCOUNTER 2022-07-02 15:20 | Outpatient (REF) | payer OTHER, SELFPAY ==
[2022-07-03 07:18] LABS: Syphilis Screen Nonreactive (Nonreactive)
[2022-07-03 07:43] LABS: HBc Num1 0.29 S/CO (0.00-0.79); HIV AB/AG Nonreactive (Nonreactive); HIV Num 1 0.07 S/CO (0.00-0.99); Hepatitis B Core Antibody Nonreactive (Nonreactive); ~HepC Num1 0.07 S/CO (0.00-0.79); ~Hepatitis C Antibody Nonreactive (Nonreactive)
[2022-07-03 11:52] LABS: CT PCR NOT DETECTED (Not Detect.); NG PCR NOT DETECTED (Not Detect.)
[2022-07-03 13:15] LABS: BV Int Neg Control Negative (Negative); BV Int Pos Control Positive (Positive)
[2022-07-08 10:12] LABS: HPV 16 RNA NOT DETECTED (NOT DETECTED); HPV mRNA E6/E7 rflx Detected (Not Detected)
== END 2022-07-02 15:21 | disposition home or self-care (01) ==
LOC: HO.LAB 15:20
PROVIDERS: PCP Internal Medicine; Visit Provider Advanced Practice Midwife
DX: Z01.419 Encounter for gynecological examination (general) (routine) without abnormal findings (principal); Z11.3 Encounter for screening for infections with a predominantly sexual mode of transmission; Z11.4 Encounter for screening for human immunodeficiency virus [HIV]; Z11.51 Encounter for screening for human papillomavirus (HPV); Z20.2 Contact with and (suspected) exposure to infections with a predominantly sexual mode of transmission
CPT/HCPCS: 36415; 86704; 86780; 86803; 87389; 87480; 87491; 87510; 87591; 87624; 87625; 87660; 88142

== ENCOUNTER 2022-08-09 07:48 | Emergency (ER) | payer OTHER, SELFPAY ==
[2022-08-09 07:49] VITALS: BP 111/75; PULSE 86; RESP 16; TEMP 36.7; O2SAT 99; BMI 37.8
--- NOTE | 2022-08-09 08:02 | ED.GENADULT ---
HPI - General Adult General Chief complaint: Upper Respiratory Symptoms Stated complaint: Congestion/Sore throat/Back pain Time Seen by Provider: 08/09/22 08:02 Source: patient Mode of arrival: ambulatory Limitations: no limitations History of Present Illness HPI narrative: Patient is a 32 year old female presenting to the emergency department today with a sore throat and back pain. Patient states that starting a few days ago her right upper back started to hurt and now her throat hurts. Patient states that she does not believe the 2 are related and would like something for the back pain. Patient denies any dizziness, lightheadedness, abdominal pain, nausea, vomiting, fever, chills, blurry vision, double vision, loss of vision, chest pain, difficulty breathing, shortness of breath, night sweats, pain with urination, increased urinary frequency, increased urinary urgency, blood in her urine or stool, syncope or a near syncopal episode, recent trauma or falls, bowel incontinence, bladder incontinence, bowel retention, bladder retention, or any other complaints at this time. Onset (ago): day(s) Location: back Severity: mild Severity scale (1-10): 2 Quality: dull Pain Consistency: constant Relieving factors: none Exacerbating factors: none Associated symptoms: denies other symptoms Treatments prior to arrival: none Related Data Home Medications Medication Instructions Recorded Confirmed etonogestrel 68 mg subdermal subdermal 09/29/20 09/26/21 implant (Nexplanon) Previous Rx's Medication Instructions Recorded cetirizine 10 mg tablet 10 mg PO DAILY 30 days #30 tabs 04/10/21 fluconazole 150 mg tablet 150 mg PO ONCE 1 day #1 tab 11/27/21 valacyclovir 500 mg tablet 500 mg PO BID 5 days #90 tabs 07/02/22 (Valtrex) metronidazole 500 mg tablet 500 mg PO BID 7 days #14 tabs 07/05/22 cyclobenzaprine 5 mg tablet 5 mg PO TID PRN back pain 7 days 08/09/22 #21 tabs penicillin V potassium 500 mg 500 mg PO BID 10 days #20 tabs 08/09/22 tablet Allergies Allergy/AdvReac Type Severity Reaction Status Date / Time SEASONAL ALLERGIES Allergy Unknown UNKNOWN Uncoded 07/02/22 14:44 Review of Systems Constitutional: Constitutional: Reports no additional constitutional complaints, Denies chills, Denies fever(s) and Denies night sweats Eyes: Eyes: Reports no additional eye complaints, Denies blurry vision, Denies change in vision, Denies diplopia, Denies eye discharge, Denies loss of vision and Denies eye pain ENT: Denies dizziness and Reports sore throat Cardiovascular: Cardiovascular: Reports no additional cardiovascular complaints, Denies chest pain, Denies lightheadedness, Denies Loss of Consciousness and Denies dyspnea Respiratory: Respiratory: Reports no additional respiratory complaints and Denies dyspnea Gastrointestinal: Gastrointestinal: Reports no additional gastrointestinal complaints, Denies abdominal pain, Denies melena, Denies hematochezia, Denies change in bowel habits and Denies change in stool character Genitourinary: Genitourinary: Denies hematuria, Denies urinary frequency, Denies dysuria, Denies urinary incontinence, Denies urinary hesitancy and Denies urinary urgency Musculoskeletal: Musculoskeletal: Reports no additional musculoskeletal complaints, Reports back pain, Denies numbness and Denies tingling Neurologic: Denies dizziness, Denies loss of vision, Denies numbness and Denies tingling Psychiatric: Psychiatric: Reports no additional psychiatric complaints Endocrine: Endocrine: Reports no additional endocrine complaints Hematologic/Lymphatic: Hematologic/Lymphatic: Reports no additional hematologic/lymphatic complaints Allergic/Immunologic: Allergic/Immunologic: Reports no additional allergic/immunologic complaints [facility] Past Medical History Attestation statement: The following information was validated with the patient. Source: old records reviewed Medical History Acne comedone Depression with anxiety Family history of thyroid cancer History of abscess of skin and subcutaneous tissue Hx of abnormal cervical Pap smear Impaired fasting glucose Left anterior knee pain Migraines Morbid obesity Nasal congestion Nose disorder Tension type headache Wrist pain, right Surgical History No pertinent past surgical history Family History Family History Father No problems noted. Mother Hypertension Maternal Grandfather Alzheimers disease Parkinsons Sister Acute Crohn's disease with complication Diabetes mellitus Maternal Grandmother Skin cancer Thyroid cancer Brother Mental health disorder Social History Social History Housing: Apartment Patient Tobacco Use Status: Never used Tobacco e-Cigarette/Vaping Use: Never Used Second Hand Smoke Exposure: No Advance Directives: No Advance Directives Information Provided: No service: No Current occupational status: employed Physical Exam ED Vital Signs: Vital Signs - 24 hr 08/09/22 07:49 Temperature 98.1 F Pulse Rate 86 Respiratory Rate 16 Blood Pressure 111/75 Pulse Oximetry 99 Oxygen Delivery Method Room Air BMI result Body Mass Index 37.8 Const General: cooperative, no acute distress, alert and awake Nutritional Appearance: well nourished Orientation/consciousness: patient oriented x3 Limitations: no limitations HENMT Head: Yes normal to inspection and Yes atraumatic Ears: hearing grossly normal bilaterally and external ears normal General nose exam: Normal external nose present, no nasal discharge noted and no epistaxis Face and sinus: Yes normal facial exam, No abrasion and No laceration Mouth: Normal oral and palatal mucosa present, no drooling and no muffled voice Throat: Yes other (tonsilar erythema and exudates) Eyes General: appearance normal, both eyes and all related structures Periorbital: periorbital findings normal Eyelids: Yes eyelids normal Conjunctivae: conjunctivae normal Pupils: Equal, round and reactive pupils present EOM: EOMs intact bilaterally Neck Neck: Yes normal visual inspection, Yes full ROM and Yes no lymphadenopathy Chest Chest palpation & inspection: normal inspection of the chest Resp Effort & Inspection: normal respiratory effort and able to speak in complete sentences Auscultation: clear to auscultation bilaterally Cardio Rate: regular rate Rhythm: regular rhythm GI Inspection: Yes normal to inspection Neuro General: patient oriented x3 and moves all extremities Cranial nerves: Yes Equal, round and reactive pupils present Cognition (Neuro): normal cognition Motor exam (neuro): 5/5 motor strength present throughout Sensory Exam: Normal double simultaneous stimulation for sensation Coordination: [id number] test normal Extrem General: Yes normal to inspection, Yes full ROM and Yes capillary refill normal Psych Appearance: grossly normal Mental Status: mental status grossly normal Affect: normal affect Attitude: cooperative Thought process: Normal thought process present Thought content: Normal thought content present Insight: Good insight present (Psych) Medical Decision Making MDM Narrative Medical decision making narrative: Patient is a 32 year old female presenting to the emergency department today with back pain and a sore throat. Patient's physical exam showed erythematous tonsils with exudate but was otherwise unremarkable. Patient's rapid COVID-19 test was negative. Patient's urine showed no acute process. I explained my physical exam findings as well as all test results to the patient. I answered all questions asked by the patient. I stressed the importance of the patient taking her medication as prescribed. I stressed the importance of the patient following up with her primary care provider. I stressed the importance of the patient returning to the emergency department immediately if her symptoms were to worsen or if she were to develop any dizziness, shortness of breath, difficulty breathing, chest pain, blurry vision, loss of vision, nausea, vomiting, abdominal pain, fever, chills, back pain, or any other complaints. Patient verbalized agreement and understanding with this treatment plan and discharge. Medical Records Medical records reviewed: Yes I reviewed the patient's medical records. Lab Data Lab results reviewed: Yes I reviewed the patient's lab results. Labs: Lab Results 08/09/22 08/09/22 08/09/22 Range/Units 07:55 08:00 08:00 Urine Color Yellow Urine Appearance Clear Urine pH 6.5 (5.0-9.0) Ur Specific [place] 1.015 (1.005-1.025) Urine Protein Negative (Neg-Trace) mg/dL Urine Glucose (UA) Negative (Negative) mg/dL Urine Ketones Negative (Negative) mg/dL Urine Blood Negative (Negative) Urine Nitrite Negative (Negative) Ur Leukocyte Esterase Negative (Negative) Urine Test NEGATIVE (NEGATIVE) COVID-19 (MI) Negative (Negative) COVID-19 Clin Com See Note Discharge Plan Discharge Clinical Impression: Pharyngitis, Back pain Patient Disposition: Home, Self-Care Instructions: Pharyngitis (ED), Back Pain (ED) Additional Instructions: Follow up with your primary care provider. Return to the emergency department immediately if your symptoms worsen or if you develop any dizziness, shortness of breath, difficulty breathing, chest pain, blurry vision, loss of vision, nausea, vomiting, abdominal pain, fever, chills, back pain, or any other complaints. Prescriptions: New cyclobenzaprine 5 mg tablet 5 mg PO TID PRN (Reason: back pain) 7 Days Qty: 21 0RF penicillin V potassium 500 mg tablet 500 mg PO BID 10 Days Qty: 20 0RF No Action cetirizine 10 mg tablet 10 mg PO DAILY 30 Days Qty: 30 0RF metronidazole 500 mg tablet 500 mg PO BID 7 Days Qty: 14 0RF Nexplanon 68 mg implant subdermal valacyclovir [Valtrex] 500 mg tablet 500 mg PO BID 5 Days Qty: 90 4RF Rx Instructions: take twice a day for 3 days, repeat as needed fluconazole 150 mg tablet 150 mg PO ONCE 1 Days Qty: 1 1RF Referrals: Mary Agarwal MD [Primary Care Provider] - Print Language: Wolof
[2022-08-09 08:17] LABS: COVID-19 Test Negative (Negative)
[2022-08-09 08:21] LABS: Appearance Urine Clear; Color Urine Yellow; Glucose Urine UA Negative (Negative); Leukocyte Esterase Urine Negative (Negative); Nitrite Urine Negative (Negative); PH 6.5 (5.0-9.0); Specific Gravity - Urine 1.015 (1.005-1.025); Urine Blood Negative (Negative); Urine Ketones Negative (Negative); Urine Protein Negative (Neg-Trace)
[2022-08-09 08:24] LABS: UPreg QC Valid YES; Urine Pregnancy NEGATIVE (NEGATIVE)
== END 2022-08-09 08:58 | disposition home or self-care (01) ==
PROVIDERS: Emergency Provider Emergency Medicine; PCP Internal Medicine
DX: J02.9 Acute pharyngitis, unspecified (principal); M54.50 Low back pain, unspecified; Z20.822 Contact with and (suspected) exposure to COVID-19; Z79.899 Other long term (current) drug therapy
CPT/HCPCS: 81003; 81025; 87635; 99282; 99283

== ENCOUNTER 2022-09-06 10:30 | Outpatient (REF) | payer OTHER, SELFPAY ==
--- NOTE | ~2022-09-06 | XR_ITS ---
EXAMINATION: XR KNEE, LEFT CLINICAL INFORMATION: Left knee pain. COMPARISON: Left knee MRI dated 09/22/2020 and 08/31/2020. TECHNIQUE: Four views of the left knee. FINDINGS: Bones and soft tissues are normal. No fracture or joint effusion. Alignment is anatomic. Joint spaces are well maintained. No abnormal soft tissue calcification. XR/XR knee LT 4V IMPRESSION: Unremarkable left knee.
[2022-09-06 11:19] LABS: MANUAL DIFF FLAG NO
[2022-09-06 11:30] LABS: Basophils Absolute Auto 0.1 X10*3/uL (0.0-0.2); Basophils Percent Auto 0.6 % (0-2); Eosinophils Absolute Auto 0.2 X10*3/uL (0.0-0.4); Eosinophils Percent Auto 1.8 % (0-4); Hematocrit 44.7 % (37.0-47.0); Hemoglobin 14.7 g/dl (12.0-16.0); Imm Gran Abs Auto 0.03 X10*3/uL (0.00-0.03); Imm Gran Pct Auto 0.3 % (0.0-0.4); Lymphocytes Absolute Auto 3.3 X10*3/uL (1.2-4.9); Lymphocytes Percent Auto 33.1 % (20-40); Mean Corpuscular HGB Conc 32.9 g/dl (31.0-35.0); Mean Corpuscular Hemoglobin 31.5 pg (27.0-33.0); Mean Corpuscular Volume 95.7 fL (80.0-98.0); Mean Platelet Volume 10.3 fL (9.4-12.3); Monocytes Absolute Auto 0.6 X10*3/uL (0.1-1.2); Monocytes Percent Auto 5.8 % (2-11); Neutrophils Absolute Auto 5.8 x10*3/uL (2.0-8.3); Neutrophils Percent Auto 58.4 % (45-73); Platelet Count 305 X10*3/uL (160-400); Red Blood Count 4.67 X10*6/uL (4.20-5.50); Red Cell Distribution Width 12.3 % (11.0-16.0)
[2022-09-06 12:16] LABS: Alanine Aminotransferase 28 U/L (0-31); Anion Gap 16 (12-20); Aspartate Amino Transferase 18 U/L (5-31); Blood Urea Nitrogen 11 mg/dL (9-16); Calcium 9.5 mg/dL (8.4-10.2); Carbon Dioxide 27 mmol/L (22-29); Chloride 102 mmol/L (96-108); Cholesterol 186 mg/dL; Estimated Glomerular Filt Rate > 60; Glucose Fasting 89 mg/dL (60-99); HDL Cholesterol 36 mg/dL; LDL Cholesterol Calculated 112 mg/dl; Potassium 4.7 mmol/L (3.3-5.1); Sodium 140 mmol/L (135-145); Triglycerides 190 mg/dL
[2022-09-06 12:18] LABS: TSH reflex Free T4 1.29 uIU/mL (0.32-4.0); Vitamin D 25-OH Total 20.4 ng/mL (>30)
== END 2022-09-06 10:31 | disposition home or self-care (01) ==
LOC: HO.HMGCX 10:30
PROVIDERS: PCP Internal Medicine; Visit Provider Internal Medicine
DX: Z00.01 Encounter for general adult medical examination with abnormal findings (principal); E66.01 Morbid (severe) obesity due to excess calories; L02.429 Furuncle of limb, unspecified; R73.01 Impaired fasting glucose; M25.562 Pain in left knee; Z80.8 Family history of malignant neoplasm of other organs or systems
CPT/HCPCS: 36415; 73564; 80048; 80061; 82306; 84443; 84450; 84460; 85025

== ENCOUNTER 2022-11-02 18:52 | Emergency (ER) | payer MEDICAID, SELFPAY ==
[2022-11-02 19:00] VITALS: BP 111/72; PULSE 97; RESP 18; O2SAT 97; BMI 37.8
--- NOTE | 2022-11-02 19:18 | ED_ITS ---
HPI - Wound/Laceration General Chief Complaint: Wound/Laceration Stated Complaint: cut finger Time Seen by Provider: 11/02/22 19:18 Source: patient Mode of arrival: ambulatory Limitations: no limitations Medication Instructions Recorded Confirmed etonogestrel 68 mg subdermal subdermal 09/29/20 09/26/21 implant (Nexplanon) Patient tetanus UTD: No Context: accidental
--- NOTE | 2022-11-02 19:18 | ED.WOUNDLAC ---
HPI - Wound/Laceration General Chief Complaint: Wound/Laceration Stated Complaint: cut finger Time Seen by Provider: 11/02/22 19:18 Source: patient Mode of arrival: ambulatory Limitations: no limitations History of Present Illness HPI narrative: 32-year-old female presents for a laceration to her left 5th finger. She was throwing trash away, and cut her finger on a metal can. She applied a pressure dressing, and presented to the emergency department. She does not know when her last Tdap vaccine was updated. Onset (ago): minute(s) (Within 30 minutes of arrival) Extremity Location: left: hand (Palmar aspect of 5th finger) Place: home Patient tetanus UTD: No Context: accidental Associated symptoms: pain Treatments prior to arrival: bandage Related Data Home Medications Medication Instructions Recorded Confirmed etonogestrel 68 mg subdermal subdermal 09/29/20 09/26/21 implant (Nexplanon) Previous Rx's Medication Instructions Recorded cetirizine 10 mg tablet 10 mg PO DAILY 30 days #30 tabs 04/10/21 valacyclovir 500 mg tablet 500 mg PO BID 5 days #90 tabs 07/02/22 (Valtrex) meloxicam 15 mg tablet 15 mg PO DAILY #14 tabs 09/03/22 cephalexin 500 mg capsule 500 mg PO Q8H 10 days #30 caps 09/06/22 cholecalciferol (vitamin D3) 1,250 1,250 mcg PO QWEEK 3 months #13 09/08/22 mcg (50,000 unit) capsule caps amoxicillin 875 mg-potassium 1 tab PO Q12H 7 days #14 tabs 11/02/22 clavulanate 125 mg tablet fluconazole 150 mg tablet 150 mg PO Q3D 2 doses #2 tabs 11/02/22 (Diflucan) Allergies Allergy/AdvReac Type Severity Reaction Status Date / Time SEASONAL ALLERGIES Allergy Unknown UNKNOWN Uncoded 09/06/22 10:13 Review of Systems Review of Systems: Constitutional: No Fever, No Chills Cardiovascular: No Chest Pain, No SOB Respiratory: No Cough, No Dyspnea Gastrointestinal: No Nausea, No Vomiting, No abdominal Pain Musculoskeletal: positive left 5th finger pain, No Myalgias, No Joint Swelling Skin: Left 5th finger laceration, No rash Neuro: No Weakness, No Numbness, No Paresthesias, No Dizziness, No Headache Yes all other systems are reviewed and are negative [facility] Past Medical History Attestation statement: The following information was validated with the patient. Source: old records reviewed Medical History Acne comedone COVID-19 vaccination declined Depression with anxiety Family history of thyroid cancer Furunculosis of axilla History of abscess of skin and subcutaneous tissue Hx of abnormal cervical Pap smear Impaired fasting glucose Left anterior knee pain Left knee pain Migraines Morbid obesity Nasal congestion Nose disorder Refused influenza vaccine Tension type headache Wrist pain, right Surgical History No pertinent past surgical history Family History Family History Father No problems noted. Mother Hypertension Maternal Grandfather Alzheimers disease Parkinsons Sister Acute Crohn's disease with complication Diabetes mellitus Maternal Grandmother Skin cancer Thyroid cancer Brother Mental health disorder Social History Social History Housing: Apartment Patient Tobacco Use Status: Never used Tobacco Smoked in Last 30 Days: No e-Cigarette/Vaping Use: Never Used Second Hand Smoke Exposure: No Advance Directives: No Advance Directives Information Provided: No service: No Current occupational status: unemployed Cognitive needs: No Hearing needs: No Vision needs: No Physical Exam Vital Signs: Vital Signs: Last Vital Signs Temp 97.3 F 11/02/22 21:13 Pulse 84 11/02/22 21:13 Resp 18 11/02/22 21:13 BP 119/68 11/02/22 21:13 Pulse Ox 99 11/02/22 21:13 O2 Del Method 11/02/22 21:13 BMI result Body Mass Index 37.8 Appearance: Alert. Oriented X3. No acute distress. Eyes: Pupils equal, round and reactive to light. ENT: Pharynx normal. Neck: Normal inspection. CVS: Normal heart rate and rhythm. Respiratory: No respiratory distress. Skin: 2 cm laceration to the aspect of the left finger between the PIP and D IP. Extremities: Full range of motion to all digits. Brisk capillary refill and equal pulses. No indication of tendon deficit. Neuro: No motor deficit. No sensory deficit. Cranial nerves 2-12 intact. Course Course Course Narrative: 32-year-old female presents for left finger laceration. She is throwing away garbage and cut her finger on an old metal can. Patient does not know when her last Tdap vaccine was updated. Patient has full range of motion to the digit, brisk capillary refill, no sensation deficit. Plan of care is for laceration repair. Patient verbalized understanding of procedure. Prepped and draped in sterile fashion. Irrigated with copious amounts of saline, cleaned with Betadine. Refer to procedure note for full details. Patient tolerated procedure well. Approximately 35 minutes status post laceration repair, patient continues with brisk capillary refill, equal pulses, and full range of motion. Patient understands that she must return in 10-14 days to have sutures removed. Considering mechanism of injury, will give antibiotics for prophylaxis. Verbalized understanding of signs and symptoms indicating need for emergent intervention. Medications Administered Discontinued Medications Generic Name Dose Route Start Last Admin Trade Name Freq PRN Reason Stop Dose Admin Amoxicillin/Clavulanate Potassium 875 mg 11/02/22 19:46 11/02/22 20:05 Amoxicillin/Potassium Clav 875 Mg Tablet PO 11/02/22 19:47 875 mg ONCE ONE Administration Diphtheria/Tetanus/Acell Pertussis 0.5 ml 11/02/22 19:19 11/02/22 20:04 Diphth,Pertus(Acell),Tet Adult 0.5 Ml Syringe IM 11/02/22 19:20 0.5 ml .ONCE ONE Administration Lidocaine HCl 4 ml 11/02/22 19:19 11/02/22 20:05 Lidocaine Hcl 2% 2 Ml Vial INFILTRATI 11/02/22 19:20 4 ml ONCE ONE Administration Medical Decision Making Differential Diagnosis Differential Diagnoses: The differential diagnosis associated with the presentation includes Laceration, tendon deficit, foreign body Admission/Observation Consideration of admission/observation: Escalation of care including admission/observation considered Patient does not require admission for this visit External Record Review External record reviewed: Inpatient record and Outpatient record Prescription Management I considered prescription management with: Antibiotic Given Augmentin, mechanism of injury old metal can in dumpster Procedures Laceration Laceration 1: Site: hand (Left 5th digit) Size (cm): 2 Description: flap Depth: simple, single layer Local Anesthetic: lidocaine 2% Amount of anesthesia used (mL): 4 Pre-repair: wound explored and irrigated extensively Skin layer closed with: nylon Size (cm): 5-0 Number of sutures: 9 Technique: simple, interrupted Discharge Plan Discharge Clinical Impression: Finger laceration Patient Disposition: Home, Self-Care Instructions: Care For Your Stitches (ED), Finger Laceration (ED) Additional Instructions: You were evaluated for laceration to your left 5th finger. We placed 9 sutures. Please return in 10-14 days to have sutures removed. You may have any healthcare professional remove these sutures for you. Take Augmentin twice a day for the next 7 days. Take Diflucan 150 mg, then repeat on day 3. Take this medication on day 5 of your antibiotic course. Do not soak your hands in water for long periods of time, you may wash her hands as needed. Thank you for choosing this emergency department for evaluation. Please follow-up with primary care physician as needed. Return to the emergency department for any new, concerning, or worsening symptoms. Prescriptions: New amoxicillin-pot clavulanate 875-125 mg tablet 1 tab PO Q12H 7 Days Qty: 14 0RF fluconazole [Diflucan] 150 mg tablet 150 mg PO Q3D Qty: 2 0RF No Action cetirizine 10 mg tablet 10 mg PO DAILY 30 Days Qty: 30 0RF cholecalciferol (vitamin D3) 1,250 mcg (50,000 unit) capsule 1,250 mcg PO QWEEK 90 Days Qty: 13 0RF Nexplanon 68 mg implant subdermal cephalexin 500 mg capsule 500 mg PO Q8H 10 Days Qty: 30 0RF meloxicam 15 mg tablet 15 mg PO DAILY Qty: 14 0RF valacyclovir [Valtrex] 500 mg tablet 500 mg PO BID 5 Days Qty: 90 4RF Rx Instructions: take twice a day for 3 days, repeat as needed Interventions: ED Discharge Assessment Last Done: 11/02/22 21:14 Discharge Date/Time: 11/02/22 21:16
[2022-11-02 21:13] VITALS: BP 119/68; PULSE 84; RESP 18; TEMP 36.3; O2SAT 99
== END 2022-11-02 21:16 | disposition home or self-care (01) ==
PROVIDERS: Emergency Provider Internal Medicine; PCP Internal Medicine
DX: S61.217A Laceration without foreign body of left little finger without damage to nail, initial encounter (principal); W26.8XXA Contact with other sharp object(s), not elsewhere classified, initial encounter; Y93.E9 Activity, other interior property and clothing maintenance; Y92.030 Kitchen in apartment as the place of occurrence of the external cause; Y99.9 Unspecified external cause status; Z23 Encounter for immunization
CPT/HCPCS: 12001; 90471; 90715; 99284

== ENCOUNTER 2023-03-04 08:24 | Emergency (ER) | payer OTHER, SELFPAY ==
[2023-03-04 08:26] VITALS: BP 103/70; PULSE 82; RESP 18; TEMP 36.5; O2SAT 96; BMI 41.1
--- NOTE | 2023-03-04 08:45 | ED_ITS ---
HPI - General Adult General Chief complaint: Upper Respiratory Symptoms Stated complaint: Covid symptoms Time Seen by Provider: 03/04/23 08:45 Source: patient Mode of arrival: ambulatory Limitations: no limitations History of Present Illness HPI narrative: Patient is a 32 year old assigned female at with a history of depression and anxiety presenting to the emergency department today with a cough, nasal congestion, and body aches. Patient states that over the last day and a half she has had a cough, nasal congestion, and body aches. Patient denies any dizziness, lightheadedness, abdominal pain, nausea, vomiting, fever, chills, blurry vision, double vision, loss of vision, chest pain, difficulty breathing, shortness of breath, back pain, night sweats, pain with urination, increased urinary frequency, increased urinary urgency, blood in her urine or stool, syncope or a near syncopal episode, recent trauma or falls, bowel incontinence, bladder incontinence, bowel retention, bladder retention, or any other complaints at this time. Onset (ago): day(s) (1) Severity: mild Severity scale (1-10): 2 Relieving factors: none Exacerbating factors: none Associated symptoms: cough Treatments prior to arrival: none Related Data Home Medications Medication Instructions Recorded Confirmed etonogestrel 68 mg subdermal subdermal 09/29/20 09/26/21 implant (Nexplanon) Previous Rx's Medication Instructions Recorded cetirizine 10 mg tablet 10 mg PO DAILY 30 days #30 tabs 04/10/21 valacyclovir 500 mg tablet 500 mg PO BID 5 days #90 tabs 07/02/22 (Valtrex) meloxicam 15 mg tablet 15 mg PO DAILY #14 tabs 09/03/22 cephalexin 500 mg capsule 500 mg PO Q8H 10 days #30 caps 09/06/22 cholecalciferol (vitamin D3) 1,250 1,250 mcg PO QWEEK 3 months #13 09/08/22 mcg (50,000 unit) capsule caps amoxicillin 875 mg-potassium 1 tab PO Q12H 7 days #14 tabs 11/02/22 clavulanate 125 mg tablet fluconazole 150 mg tablet 150 mg PO Q3D 2 doses #2 tabs 11/02/22 (Diflucan) benzonatate 100 mg capsule 100 mg PO BID PRN cough 7 days #14 04/25/23 caps Allergies Allergy/AdvReac Type Severity Reaction Status Date / Time SEASONAL ALLERGIES Allergy Unknown UNKNOWN Uncoded 09/06/22 10:13 Review of Systems Constitutional: Constitutional: Reports no additional constitutional complaints, Reports body ache(s), Denies chills, Denies fever(s) and Denies night sweats Eyes: Eyes: Reports no additional eye complaints, Denies blurry vision, Denies change in vision, Denies diplopia, Denies eye discharge, Denies loss of vision and Denies eye pain ENT: Denies dizziness and Reports nasal congestion Cardiovascular: Cardiovascular: Reports no additional cardiovascular complaints, Denies chest pain, Denies lightheadedness, Denies Loss of Consciousness and Denies dyspnea Respiratory: Respiratory: Reports no additional respiratory complaints, Reports cough and Denies dyspnea Gastrointestinal: Gastrointestinal: Reports no additional gastrointestinal complaints, Denies abdominal pain, Denies melena, Denies hematochezia, Denies change in bowel habits and Denies change in stool character Genitourinary: Genitourinary: Denies hematuria, Denies urinary frequency, Denies dysuria, Denies urinary incontinence, Denies urinary hesitancy and Denies urinary urgency Musculoskeletal: Musculoskeletal: Reports no additional musculoskeletal complaints, Denies numbness and Denies tingling Neurologic: Denies dizziness, Denies loss of vision, Denies numbness and Denies tingling Psychiatric: Psychiatric: Reports no additional psychiatric complaints Endocrine: Endocrine: Reports no additional endocrine complaints Hematologic/Lymphatic: Hematologic/Lymphatic: Reports no additional hematologic/lymphatic complaints Allergic/Immunologic: Allergic/Immunologic: Reports no additional allergic/immunologic complaints [facility] Past Medical History Attestation statement: The following information was validated with the patient. Source: old records reviewed and nursing notes reviewed Medical History Acne comedone COVID-19 vaccination declined Depression with anxiety Family history of thyroid cancer Furunculosis of axilla History of abscess of skin and subcutaneous tissue Hx of abnormal cervical Pap smear Impaired fasting glucose Left anterior knee pain Left knee pain Migraines Morbid obesity Nasal congestion Nose disorder Refused influenza vaccine Tension type headache Wrist pain, right Surgical History No pertinent past surgical history Family History Family History Father No problems noted. Mother Hypertension Maternal Grandfather Alzheimers disease Parkinsons Sister Acute Crohn's disease with complication Diabetes mellitus Maternal Grandmother Skin cancer Thyroid cancer Brother Mental health disorder Social History Social History Housing: Apartment Patient Tobacco Use Status: Never used Tobacco e-Cigarette/Vaping Use: Never Used Second Hand Smoke Exposure: No Advance Directives: No Advance Directives Information Provided: Yes service: No Current occupational status: unemployed Cognitive needs: No Hearing needs: No Vision needs: No Physical Exam ED Vital Signs: Vital Signs - 24 hr 03/04/23 08:26 Temperature 97.7 F Pulse Rate 82 Respiratory Rate 18 Blood Pressure 103/70 Pulse Oximetry 96 Oxygen Delivery Method Room Air BMI result Body Mass Index 41.1 Const General: cooperative, no acute distress, alert and awake Nutritional Appearance: well nourished Orientation/consciousness: patient oriented x3 Limitations: no limitations HENMT Head: Yes normal to inspection and Yes atraumatic Ears: hearing grossly normal bilaterally and external ears normal General nose exam: Normal external nose present, no nasal discharge noted and no epistaxis Face and sinus: Yes normal facial exam, No abrasion and No laceration Mouth: Normal oral and palatal mucosa present, no drooling and no muffled voice Eyes General: appearance normal, both eyes and all related structures Periorbital: periorbital findings normal Eyelids: Yes eyelids normal Conjunctivae: conjunctivae normal Pupils: Equal, round and reactive pupils present EOM: EOMs intact bilaterally Neck Neck: Yes normal visual inspection, Yes full ROM and Yes no lymphadenopathy Chest Chest palpation & inspection: normal inspection of the chest Resp Effort & Inspection: normal respiratory effort and able to speak in complete sentences GI Inspection: Yes normal to inspection Neuro General: patient oriented x3 and moves all extremities Cranial nerves: Yes Equal, round and reactive pupils present Cognition (Neuro): normal cognition Motor exam (neuro): 5/5 motor strength present throughout Sensory Exam: Normal double simultaneous stimulation for sensation Coordination: [id number] test normal Extrem General: Yes normal to inspection, Yes full ROM and Yes capillary refill normal Psych Appearance: grossly normal Mental Status: mental status grossly normal Affect: normal affect Attitude: cooperative Thought process: Normal thought process present Thought content: Normal thought content present Insight: Good insight present (Psych) Medical Decision Making Medical Decision Making MDM Narrative: Patient is a 32 year old assigned female at with a history of depression and anxiety presenting to the emergency department today with a cough, nasal congestion, and body aches. Patient's physical exam was unremarkable. Patient's influenza/COVID/strep swabs were negative. I explained my physical exam findings as well as all test results to the patient. I answered all questions asked by the patient. I stressed the importance of the patient taking her medication as prescribed. I stressed the importance of the patient following up with her primary care provider. I stressed the importance of the patient returning to the emergency department immediately if her symptoms were to worsen or if she were to develop any dizziness, shortness of breath, difficulty breathing, chest pain, blurry vision, loss of vision, nausea, vomiting, abdominal pain, fever, chills, back pain, or any other complaints. Patient verbalized agreement and understanding with this treatment plan and discharge. Differential Diagnosis Differential Diagnoses: The differential diagnosis associated with the presentation includes cough, viral illness Lab Data [facility] Lab Attestation statement: I reviewed the patient's lab results. Labs: Lab Results 03/04/23 Range/Units 08:32 COVID-19 (MI) Negative (Negative) COVID-19 Clin Com See Note Discharge Plan Discharge Clinical Impression: Viral illness Patient Disposition: Home, Self-Care Instructions: Viral Syndrome (ED) Additional Instructions: Drink plenty of fluids and get plenty of rest. Please consider taking over the counter cold/flu medication to alleviate your symptoms. Follow up with your primary care provider. Return to the emergency department immediately if your symptoms worsen or if you develop any dizziness, shortness of breath, difficulty breathing, chest pain, blurry vision, loss of vision, nausea, vomiting, abdominal pain, fever, chills, back pain, or any other complaints. Prescriptions: New benzonatate 100 mg capsule 100 mg PO BID PRN (Reason: cough) 7 Days Qty: 14 0RF No Action cetirizine 10 mg tablet 10 mg PO DAILY 30 Days Qty: 30 0RF cholecalciferol (vitamin D3) 1,250 mcg (50,000 unit) capsule 1,250 mcg PO QWEEK 90 Days Qty: 13 0RF amoxicillin-pot clavulanate 875-125 mg tablet 1 tab PO Q12H 7 Days Qty: 14 0RF fluconazole [Diflucan] 150 mg tablet 150 mg PO Q3D Qty: 2 0RF Nexplanon 68 mg implant subdermal cephalexin 500 mg capsule 500 mg PO Q8H 10 Days Qty: 30 0RF meloxicam 15 mg tablet 15 mg PO DAILY Qty: 14 0RF valacyclovir [Valtrex] 500 mg tablet 500 mg PO BID 5 Days Qty: 90 4RF Rx Instructions: take twice a day for 3 days, repeat as needed Referrals: Roney Cleveland MD [Primary Care Provider] - Stand Alone Forms: Work/School Release Print Language: B[place]
[2023-03-04 09:07] LABS: COVID-19 Test Negative (Negative); IDNOW Serial# 08D9AD1C
[2023-03-04 09:26] LABS: IDNOW Serial# BCCEAD1C; Influenza A Negative (Negative); Influenza B2 Negative (Negative)
== END 2023-03-04 09:48 | disposition home or self-care (01) ==
PROVIDERS: Physician Assistant Medical; Emergency Provider Student in an Organized Health Care Education/Training Program; PCP Family Medicine
DX: B34.9 Viral infection, unspecified (principal); Z20.822 Contact with and (suspected) exposure to COVID-19
CPT/HCPCS: 87502; 87635; 99283

== ENCOUNTER 2023-03-16 08:28 | Emergency (ER) | payer OTHER, SELFPAY ==
--- NOTE | ~2023-03-16 | XR_ITS ---
EXAMINATION: XR CHEST, 2 VIEWS CLINICAL INFORMATION: Cough COMPARISON: 10/11/2016 TECHNIQUE: PA and lateral views of the chest were obtained. FINDINGS: Subtle patchy airspace opacities are present in the right mid lung and, to a lesser extent, the left midlung. Mild bronchial wall thickening. No consolidation, pneumothorax, or pleural effusion. Cardiac and mediastinal contours are normal. Pulmonary vasculature is unremarkable. Trachea is midline. Osseous structures are unremarkable. XR/XR chest 2V IMPRESSION: Subtle patchy opacities in the midlungs which are nonspecific but could correspond to viral or atypical pneumonia.
[2023-03-16 08:47] VITALS: BP 112/64; PULSE 91; RESP 19; TEMP 36.6; O2SAT 96; BMI 37.8
--- NOTE | 2023-03-16 09:13 | ED_ITS ---
HPI - URI/Sore Throat General Chief Complaint: Upper Respiratory Symptoms Stated Complaint: cough has gotten worse Time Seen by Provider: 03/16/23 09:13 Source: patient Mode of arrival: ambulatory Limitations: no limitations History of Present Illness HPI Narrative: This is a 32-year-old male history of obesity presenting to the emergency department for evaluation of fatigue, malaise, dry cough that has now progressed to productive cough, headaches, myalgias for the past 2 weeks not improving. Patient reports diffuse headache without vision changes, dizziness or head trauma. Denies recent sick contacts. Denies fevers, chills, chest pain, shortness of breath, nausea, vomiting, abdominal pain. Related Data Home Medications Medication Instructions Recorded Confirmed etonogestrel 68 mg subdermal subdermal 09/29/20 09/26/21 implant (Nexplanon) Previous Rx's Medication Instructions Recorded cetirizine 10 mg tablet 10 mg PO DAILY 30 days #30 tabs 04/10/21 valacyclovir 500 mg tablet 500 mg PO BID 5 days #90 tabs 07/02/22 (Valtrex) meloxicam 15 mg tablet 15 mg PO DAILY #14 tabs 09/03/22 cephalexin 500 mg capsule 500 mg PO Q8H 10 days #30 caps 09/06/22 cholecalciferol (vitamin D3) 1,250 1,250 mcg PO QWEEK 3 months #13 09/08/22 mcg (50,000 unit) capsule caps amoxicillin 875 mg-potassium 1 tab PO Q12H 7 days #14 tabs 11/02/22 clavulanate 125 mg tablet fluconazole 150 mg tablet 150 mg PO Q3D 2 doses #2 tabs 11/02/22 (Diflucan) benzonatate 100 mg capsule 100 mg PO BID PRN cough 7 days #14 03/04/23 caps albuterol sulfate 90 mcg/actuation 2 inh inhalation Q4-6H PRN 03/16/23 breath activated powder inhaler shortness of breath or wheezing #1 ea azithromycin 250 mg tablet See Rx Instructions PO .COMPLEX #6 03/16/23 tabs benzonatate 100 mg capsule 100 mg PO BID PRN cough #20 caps 03/16/23 doxycycline hyclate 100 mg capsule 100 mg PO BID 10 days #20 caps 03/16/23 ketorolac 10 mg tablet 10 mg PO TID PRN pain 5 days #15 03/16/23 tabs Allergies Allergy/AdvReac Type Severity Reaction Status Date / Time SEASONAL ALLERGIES Allergy Unknown UNKNOWN Uncoded 03/16/23 08:46 Review of Systems Review of Systems: Constitutional : No Weight loss, No Fever, No Chills, + Fatigue, + Malaise ENT/Mouth : No sore throat, No Rhinorrhea Eyes: No Eye Pain, No Swelling, No Redness Cardiovascular : No Chest Pain, No SOB, No Dyspnea on Exertion, No Orthopnea, No Edema, No Palpitations Respiratory : + Cough, + Sputum, No Wheezing Gastrointestinal : No Nausea, No Vomiting, No Diarrhea, No Constipation, No abdominal Pain, No Hematochezia, No Melena Genitourinary : No Dysuria, No Urinary Frequency, No Hematuria, Musculoskeletal : No joint pain, + Myalgias, No Joint Swelling Skin : No Skin Lesions, No rash Neuro : No Weakness, No Numbness, No Dizziness, No Headache Psych : No Anxiety/Panic, No Depression All other systems reviewed and are negative Yes all other systems are reviewed and are negative [facility] Past Medical History Attestation statement: The following information was validated with the patient. Source: old records reviewed and nursing notes reviewed Medical History Acne comedone COVID-19 vaccination declined Depression with anxiety Family history of thyroid cancer Furunculosis of axilla History of abscess of skin and subcutaneous tissue Hx of abnormal cervical Pap smear Impaired fasting glucose Left anterior knee pain Left knee pain Migraines Morbid obesity Nasal congestion Nose disorder Refused influenza vaccine Tension type headache Wrist pain, right Surgical History No pertinent past surgical history Family History Family History Father No problems noted. Mother Hypertension Maternal Grandfather Alzheimers disease Parkinsons Sister Acute Crohn's disease with complication Diabetes mellitus Maternal Grandmother Skin cancer Thyroid cancer Brother Mental health disorder Social History Social History Housing: Apartment Patient Tobacco Use Status: Never used Tobacco e-Cigarette/Vaping Use: Never Used Second Hand Smoke Exposure: No Advance Directives: No Advance Directives Information Provided: Yes service: No Current occupational status: unemployed Cognitive needs: No Hearing needs: No Vision needs: No Physical Exam Vital Signs: Vital Signs: Last Vital Signs Temp 98 F 03/16/23 08:47 Pulse 91 03/16/23 08:47 Resp 19 03/16/23 08:47 BP 112/64 03/16/23 08:47 Pulse Ox 96 03/16/23 08:47 O2 Del Method Room Air 03/16/23 08:47 BMI result Body Mass Index 37.8 Vital signs stable Appearance: Alert.? Oriented X3.? No acute distress.? Head: Normocephalic, atraumatic, no step-offs or deformities Eyes: Pupils equal, round and reactive to light.? CVS: Normal heart rate and rhythm.? Pulses normal.? Respiratory: No respiratory distress.? Breath sounds normal.? Abdomen: Soft and nontender.? Skin: Skin warm and dry.? Normal skin color.? Normal skin turgor.? Extremities: No lower extremity edema.? No calf ttp. 5/5 strength to bilateral upper and lower extremities Back: No midline tenderness, no C-spine tenderness, full range of motion, no CVA tenderness bilaterally Neuro: Oriented X 3.? No motor deficit.? No sensory deficit. CN 2-12 intact. Normal [id number], [id number], steady tandem gait with normal coordination. Course Reevaluation(s) Reevaluation #1: Patient received Toradol here in the department will be discharged home on same. Educated patient on diagnosis and treatment plan, answered all question, patient verbalizes understanding. At this time patient will be discharged home, advised to return with new or worsening symptoms. Educated on worrisome signs and symptoms and when to return. At this time I feel comfortable discharge home. Time: 09:24 Reevaluation #2: X-ray showing subtle patchy opacities in the mid lungs which are nonspecific but could represent viral or atypical pneumonia, due to thick sputum will prescribe doxycycline to cover for possible community-acquired will also add azithromycin. Time: 09:46 Medical Decision Making Medical Decision Making MDM Narrative: 32-year-old female presents with URI symptoms for 2 weeks not improving. Physical exam benign. Neuro nonfocal. Cerebellar intact. Patient well- appearing. Likely bacterial bronchitis versus viral syndrome. Unlikely meningitis, encephalitis, intracranial hemorrhage, stroke, posterior stroke, pneumonia, PE. Plan at this time x-ray. Differential Diagnosis Differential Diagnoses: The differential diagnosis associated with the presentation includes Likely bacterial bronchitis versus viral syndrome. Unlikely meningitis, encephalitis, intracranial hemorrhage, stroke, posterior stroke, pneumonia, PE. Admission/Observation Consideration of admission/observation: Escalation of care including admission/observation considered Not indicated Independent Interpretation I performed an independent interpretation of an: Plain X-Ray (Unremarkable) Radiology Impression Discussion of test interpretation with radiology: I have reviewed the radiologist's reading. External Record Review External record reviewed: Inpatient record, Office record, Outpatient record, Prior outpatient labs, Prior outpatient radiology, Primary care record and Outside ED record Core Measures AMI core measures followed: Yes Measure exclusions: not indicated Critical Care Time Critical Care Time Critical Care Time: No Discharge Plan Discharge Clinical Impression: Viral pneumonia Patient Disposition: Home, Self-Care Additional Instructions: Take your medications as prescribed. If you were prescribed antibiotics today, it is important that you take your medication to their entirety, do not skip any doses, do not finish them early. Follow-up with your primary care provider this week. Return to the emergency department with new or worsening symptoms. Such as fevers, chills, chest pain, shortness of breath, nausea, vomiting, dizziness, headache, vision changes, lethargy In case of emergency call 911 Prescriptions: New doxycycline hyclate 100 mg capsule 100 mg PO BID 10 Days Qty: 20 0RF benzonatate 100 mg capsule 100 mg PO BID PRN (Reason: cough) Qty: 20 0RF albuterol sulfate 90 mcg/actuation aerosol powdr breath activated 2 inh inhalation Q4-6H PRN (Reason: shortness of breath or wheezing) Qty: 1 0RF ketorolac 10 mg tablet 10 mg PO TID PRN (Reason: pain) 5 Days Qty: 15 0RF azithromycin 250 mg tablet See Rx Instructions .ROUTE .COMPLEX Qty: 6 0RF Rx Instructions: For 250 mg dose pack: take 500 mg today (day 1), then 250 mg for 4 days (days 2-5) No Action cetirizine 10 mg tablet 10 mg PO DAILY 30 Days Qty: 30 0RF cholecalciferol (vitamin D3) 1,250 mcg (50,000 unit) capsule 1,250 mcg PO QWEEK 90 Days Qty: 13 0RF amoxicillin-pot clavulanate 875-125 mg tablet 1 tab PO Q12H 7 Days Qty: 14 0RF fluconazole [Diflucan] 150 mg tablet 150 mg PO Q3D Qty: 2 0RF benzonatate 100 mg capsule 100 mg PO BID PRN (Reason: cough) 7 Days Qty: 14 0RF Nexplanon 68 mg implant subdermal cephalexin 500 mg capsule 500 mg PO Q8H 10 Days Qty: 30 0RF meloxicam 15 mg tablet 15 mg PO DAILY Qty: 14 0RF valacyclovir [Valtrex] 500 mg tablet 500 mg PO BID 5 Days Qty: 90 4RF Rx Instructions: take twice a day for 3 days, repeat as needed Referrals: ED Physician,Generic [Physician] - 2 days Physician,Unknown J [Primary Care Provider] - Stand Alone Forms: Work/School Release
[2023-03-16] MEDS: Ketorolac Tromethamine 15 MG/ML VIAL 30 MG IM (09:50)
== END 2023-03-16 09:56 | disposition home or self-care (01) ==
PROVIDERS: Emergency Provider Emergency Medicine
DX: J12.9 Viral pneumonia, unspecified (principal); R05.9 Cough, unspecified; R53.83 Other fatigue; Z79.899 Other long term (current) drug therapy
CPT/HCPCS: 71046; 96372; 99283; 99284; J1885

== ENCOUNTER 2023-07-22 11:08 | Emergency (ER) | payer OTHER, SELFPAY ==
--- NOTE | 2023-07-22 11:46 | ED.HA ---
HPI - Headache General Chief Complaint: Headache Stated Complaint: Migraine/Nausea/Lightheaded Related Data Home Medications Medication Instructions Recorded Confirmed etonogestrel 68 mg subdermal subdermal 09/29/20 09/26/21 implant (Nexplanon) Previous Rx's Medication Instructions Recorded cetirizine 10 mg tablet 10 mg PO DAILY 30 days #30 tabs 04/10/21 valacyclovir 500 mg tablet 500 mg PO BID 5 days #90 tabs 07/02/22 (Valtrex) meloxicam 15 mg tablet 15 mg PO DAILY #14 tabs 09/03/22 cephalexin 500 mg capsule 500 mg PO Q8H 10 days #30 caps 09/06/22 cholecalciferol (vitamin D3) 1,250 1,250 mcg PO QWEEK 3 months #13 09/08/22 mcg (50,000 unit) capsule caps amoxicillin 875 mg-potassium 1 tab PO Q12H 7 days #14 tabs 11/02/22 clavulanate 125 mg tablet fluconazole 150 mg tablet 150 mg PO Q3D 2 doses #2 tabs 11/02/22 (Diflucan) benzonatate 100 mg capsule 100 mg PO BID PRN cough 7 days #14 03/04/23 caps albuterol sulfate 90 mcg/actuation 2 inh inhalation Q4-6H PRN 03/16/23 breath activated powder inhaler shortness of breath or wheezing #1 ea azithromycin 250 mg tablet See Rx Instructions PO .COMPLEX #6 03/16/23 tabs benzonatate 100 mg capsule 100 mg PO BID PRN cough #20 caps 03/16/23 doxycycline hyclate 100 mg capsule 100 mg PO BID 10 days #20 caps 03/16/23 fluconazole 150 mg tablet 150 mg PO Q3D 2 doses #2 tabs 03/16/23 ketorolac 10 mg tablet 10 mg PO TID PRN pain 5 days #15 03/16/23 tabs Allergies Allergy/AdvReac Type Severity Reaction Status Date / Time SEASONAL ALLERGIES Allergy Unknown UNKNOWN Uncoded 03/16/23 08:46 [facility] Past Medical History Medical History Acne comedone COVID-19 vaccination declined Depression with anxiety Family history of thyroid cancer Furunculosis of axilla History of abscess of skin and subcutaneous tissue Hx of abnormal cervical Pap smear Impaired fasting glucose Left anterior knee pain Left knee pain Migraines Morbid obesity Nasal congestion Nose disorder Refused influenza vaccine Tension type headache Wrist pain, right Surgical History No pertinent past surgical history Family History Family History Father No problems noted. Mother Hypertension Maternal Grandfather Alzheimers disease Parkinsons Sister Acute Crohn's disease with complication Diabetes mellitus Maternal Grandmother Skin cancer Thyroid cancer Brother Mental health disorder Social History Social History Housing: Apartment Patient Tobacco Use Status: Never used Tobacco e-Cigarette/Vaping Use: Never Used Second Hand Smoke Exposure: No Advance Directives: No service: No Current occupational status: unemployed Cognitive needs: No Hearing needs: No Vision needs: No Physical Exam Vital Signs: Vital Signs: Last Vital Signs Temp 98.2 F 07/22/23 11:47 Pulse 61 07/22/23 11:47 Resp 18 07/22/23 11:47 BP 109/70 07/22/23 11:47 Pulse Ox 100 07/22/23 11:47 O2 Del Method Room Air 07/22/23 11:47 BMI result Body Mass Index 37.8 Course Course Course Narrative: RME: 33-year-old female w/PMHx anxiety, depression, obesity, migraines, c/o migraine [place], nausea and lightheadedness s/p 1st allergy shot yesterday. Admits sx started right after shot w/assoc difficulty concentrating, photophobia and sound exacerbating sx. Reports taking Motrin at home w/o relief. No meds taken today. Headache not maximal at onset Labs, viral testing, IVF, Benadryl/Toradol/Reglan ordered Full HPI, ROS and PE to be performed by primary ED provider. Discharge Plan Discharge Clinical Impression: Headache Patient Disposition: Elopement Prescriptions: No Action cetirizine 10 mg tablet 10 mg PO DAILY 30 Days Qty: 30 0RF cholecalciferol (vitamin D3) 1,250 mcg (50,000 unit) capsule 1,250 mcg PO QWEEK 90 Days Qty: 13 0RF amoxicillin-pot clavulanate 875-125 mg tablet 1 tab PO Q12H 7 Days Qty: 14 0RF fluconazole [Diflucan] 150 mg tablet 150 mg PO Q3D Qty: 2 0RF benzonatate 100 mg capsule 100 mg PO BID PRN (Reason: cough) 7 Days Qty: 14 0RF doxycycline hyclate 100 mg capsule 100 mg PO BID 10 Days Qty: 20 0RF benzonatate 100 mg capsule 100 mg PO BID PRN (Reason: cough) Qty: 20 0RF albuterol sulfate 90 mcg/actuation aerosol powdr breath activated 2 inh inhalation Q4-6H PRN (Reason: shortness of breath or wheezing) Qty: 1 0RF ketorolac 10 mg tablet 10 mg PO TID PRN (Reason: pain) 5 Days Qty: 15 0RF azithromycin 250 mg tablet See Rx Instructions .ROUTE .COMPLEX Qty: 6 0RF Rx Instructions: For 250 mg dose pack: take 500 mg today (day 1), then 250 mg for 4 days (days 2-5) fluconazole 150 mg tablet 150 mg PO Q3D Qty: 2 0RF Nexplanon 68 mg implant subdermal cephalexin 500 mg capsule 500 mg PO Q8H 10 Days Qty: 30 0RF meloxicam 15 mg tablet 15 mg PO DAILY Qty: 14 0RF valacyclovir [Valtrex] 500 mg tablet 500 mg PO BID 5 Days Qty: 90 4RF Rx Instructions: take twice a day for 3 days, repeat as needed Interventions: LWBS Worksheet Last Done: 07/22/23 12:35 Discharge Date/Time: 07/22/23 12:36
[2023-07-22 11:47] VITALS: BP 109/70; PULSE 61; RESP 18; TEMP 36.8; O2SAT 100; BMI 37.8
== END 2023-07-22 12:36 | disposition left against medical advice (07) ==
PROVIDERS: Emergency Provider Emergency Medicine; PCP Family Medicine
DX: R51.9 Headache, unspecified (principal); E66.9 Obesity, unspecified; Z68.37 Body mass index [BMI] 37.0-37.9, adult; Z79.899 Other long term (current) drug therapy
CPT/HCPCS: 99281

== ENCOUNTER 2023-07-29 07:15 | Emergency (ER) | payer OTHER, SELFPAY ==
--- NOTE | ~2023-07-29 | XR_ITS ---
EXAMINATION: XR CHEST CLINICAL INFORMATION: Cough COMPARISON: 03/16/2023 TECHNIQUE: 2 views of the chest were obtained. FINDINGS: Lungs are well-inflated and clear. Trachea is midline in position. No interstitial disease, consolidation or mass. No pleural effusion or pneumothorax. Cardiac silhouette and pulmonary vessels are normal in size. The mediastinum and maura have normal contour. The visualized bones and upper abdomen are unremarkable. XR/XR chest 2V IMPRESSION: No acute cardiopulmonary abnormality.
[2023-07-29 07:17] VITALS: BP 119/68; PULSE 82; RESP 14; TEMP 37.2; O2SAT 96; BMI 43.5
--- NOTE | 2023-07-29 07:31 | ED_ITS ---
HPI - General Adult General Chief complaint: General Medical Stated complaint: Cough Chest Pressure Time Seen by Provider: 07/29/23 07:27 Source: patient Mode of arrival: ambulatory Limitations: no limitations History of Present Illness HPI narrative: [age] year female with with otherwise healthy came in for evaluation of coughing and wheezing, chest pain with cough, white sputum. No fever, no chills, Generalized body ache, sore throat, patient was exposed to his niece was also sick with similar symptoms. No recent travel, known normal extremities swelling or tenderness. No history of cigarette smoking. Related Data Home Medications Medication Instructions Recorded Confirmed etonogestrel 68 mg subdermal subdermal 09/29/20 09/26/21 implant (Nexplanon) Previous Rx's Medication Instructions Recorded cetirizine 10 mg tablet 10 mg PO DAILY 30 days #30 tabs 04/10/21 valacyclovir 500 mg tablet 500 mg PO BID 5 days #90 tabs 07/02/22 (Valtrex) meloxicam 15 mg tablet 15 mg PO DAILY #14 tabs 09/03/22 cephalexin 500 mg capsule 500 mg PO Q8H 10 days #30 caps 09/06/22 cholecalciferol (vitamin D3) 1,250 1,250 mcg PO QWEEK 3 months #13 09/08/22 mcg (50,000 unit) capsule caps amoxicillin 875 mg-potassium 1 tab PO Q12H 7 days #14 tabs 11/02/22 clavulanate 125 mg tablet fluconazole 150 mg tablet 150 mg PO Q3D 2 doses #2 tabs 11/02/22 (Diflucan) benzonatate 100 mg capsule 100 mg PO BID PRN cough 7 days #14 03/04/23 caps albuterol sulfate 90 mcg/actuation 2 inh inhalation Q4-6H PRN 03/16/23 breath activated powder inhaler shortness of breath or wheezing #1 ea azithromycin 250 mg tablet See Rx Instructions PO .COMPLEX #6 03/16/23 tabs benzonatate 100 mg capsule 100 mg PO BID PRN cough #20 caps 03/16/23 doxycycline hyclate 100 mg capsule 100 mg PO BID 10 days #20 caps 03/16/23 fluconazole 150 mg tablet 150 mg PO Q3D 2 doses #2 tabs 03/16/23 ketorolac 10 mg tablet 10 mg PO TID PRN pain 5 days #15 03/16/23 tabs amoxicillin 875 mg-potassium 1 tab PO BID #14 tabs 07/29/23 clavulanate 125 mg tablet prednisone 20 mg tablet 20 mg PO BID #10 tabs 07/29/23 Allergies Allergy/AdvReac Type Severity Reaction Status Date / Time SEASONAL ALLERGIES Allergy Unknown UNKNOWN Uncoded 03/16/23 08:46 Review of Systems Review of Systems: All other systems are reviewed and are negative Constitutional: Reports as per HPI and Reports no additional constitutional complaints Eyes: Reports as per HPI and Reports no additional eye complaints Reports system reviewed and no additional complaints, except as documented Cardiovascular: Reports as per HPI and Reports no additional cardiovascular complaints Respiratory: Reports as per HPI and Reports no additional respiratory complaints Gastrointestinal: Reports as per HPI and Reports no additional gastrointestinal complaints Genitourinary: Reports no additional female genitourinary complaints Musculoskeletal: Reports no additional musculoskeletal complaints Skin/Breast: Reports system reviewed and no additional complaints, except as docu Psychiatric: Reports no additional psychiatric complaints Endocrine: Reports no additional endocrine complaints Hematologic/Lymphatic: Reports no additional hematologic/lymphatic complaints Allergic/Immunologic: Reports no additional allergic/immunologic complaints Reports system reviewed and no additional complaints, except as documented and Reports Abnormal speech present REPLACED BY [facility] Past Medical History Medical History Refused influenza vaccine COVID-19 vaccination declined Left knee pain Furunculosis of axilla Hx of abnormal cervical Pap smear History of abscess of skin and subcutaneous tissue Depression with anxiety Morbid obesity Nasal congestion Acne comedone Family history of thyroid cancer Impaired fasting glucose Tension type headache Left anterior knee pain Migraines Wrist pain, right Nose disorder Surgical History No pertinent past surgical history Family History Family History Father No problems noted. Mother Hypertension Maternal Grandfather Alzheimers disease Parkinsons Sister Acute Crohn's disease with complication Diabetes mellitus Maternal Grandmother Skin cancer Thyroid cancer Brother Mental health disorder Social History Social History Housing: Apartment Patient Tobacco Use Status: Never used Tobacco e-Cigarette/Vaping Use: Never Used Second Hand Smoke Exposure: No Advance Directives: No service: No Current occupational status: unemployed Cognitive needs: No Hearing needs: No Vision needs: No Physical Exam ED Vital Signs: Vital Signs - 24 hr 07/29/23 07:17 07/29/23 07:45 07/29/23 08:03 Temperature 99 F 99.2 F Pulse Rate 82 82 84 Respiratory Rate 14 16 16 Blood Pressure 119/68 118/68 Pulse Oximetry 96 98 Oxygen Delivery Method Room Air Room Air BMI result Body Mass Index 43.5 Vital signs have been reviewed and appear to be correct. Blood pressure elevated. Heart rate normal. Respiratory rate normal. Temperature normal. Oxygen saturation normal. Appearance: Alert. Oriented X3. No acute distress. Head: Normal external exam. Normocephalic. Atraumatic. No Mishra signs noted. No raccoon eyes noted Eyes: PERRLA. EOMI. Conjunctiva and sclera normal. Eyelids normal. ENT: TM's Normal. Pharynx normal. Uvula midline. Moist mucous membranes. No trismus noted. No drooling noted. No muffled voice noted. Neck: Normal inspection. Neck supple. FROM. No adenopathy. Thyroid Normal. No meningeal signs. No neck mass noted. CVS: Normal heart rate and rhythm. Heart sound normal. No murmurs noted. Pulses normal throughout. Respiratory: No respiratory distress. Painless inspiration. Breath sounds normal. Mild diffuse expiratory wheezing with prolonged expiration.. Chest nontender. No accessory muscle usage noted or decreased air movement noted. Abdomen: Soft and nontender. Bowel sounds normal in all 4 quadrants. No distention noted. No organomegaly noted. No visible injury noted. Back: No CVA tenderness. Full range of motion noted. Skin: Skin warm and dry. Normal skin color. Normal skin turgor. No rashes/lesions/lacerations noted. Extremities: No lower extremity edema. Extremities exhibit normal range of motion. Extremities nontender. Neuro: Oriented X 3. Cranial nerve exam: II-XII are grossly intact No motor deficit. No sensory deficit. Reflexes normal. Course Course Course Narrative: Strep pharyngitis start the patient on amoxicillin and prednisone. Medications Administered Discontinued Medications Generic Name Dose Route Start Last Admin Trade Name Freq PRN Reason Stop Dose Admin Albuterol/Ipratropium 3 ml 07/29/23 07:32 07/29/23 07:43 Albuterol/Iprat 2.5/0.5mg 3 Ml Ampul.Neb INHALE 07/29/23 07:33 3 ml ONCE ONE Administration Guaifenesin/Codeine Phosphate 10 ml 07/29/23 07:32 07/29/23 08:01 Guaifen/Codeine Sf 200/20/10ml 10 Ml Liquid PO 07/29/23 07:33 10 ml ONCE ONE Administration Prednisone 40 mg 07/29/23 07:32 07/29/23 08:01 Prednisone 20 Mg Tablet PO 07/29/23 07:33 40 mg ONCE ONE Administration Medical Decision Making Differential Diagnosis Differential Diagnoses: The differential diagnosis associated with the presentation includes (Pneumonia, viral bronchitis, URI, pneumothorax, pleural effusion, strep pharyngitis.) Admission/Observation Consideration of admission/observation: Escalation of care including admission/observation considered Lab Data MDM Lab Attestation statement: I reviewed the patient's lab results. Labs: Lab Results 07/29/23 Range/Units 07:50 S. pyogenes GrpA SALLY Positive A (Negative) Independent Interpretation I performed an independent interpretation of an: Plain X-Ray (Chest: No acute intrathoracic pathology.) Radiology Impression Discussion of test interpretation with radiology: I have reviewed the radiologist's reading. Discharge Plan Discharge Clinical Impression: Acute streptococcal pharyngitis Patient Disposition: Home, Self-Care Instructions: Strep Throat (ED) Prescriptions: New amoxicillin-pot clavulanate 875-125 mg tablet 1 tab PO BID Qty: 14 0RF prednisone 20 mg tablet 20 mg PO BID Qty: 10 0RF No Action cetirizine 10 mg tablet 10 mg PO DAILY 30 Days Qty: 30 0RF cholecalciferol (vitamin D3) 1,250 mcg (50,000 unit) capsule 1,250 mcg PO QWEEK 90 Days Qty: 13 0RF amoxicillin-pot clavulanate 875-125 mg tablet 1 tab PO Q12H 7 Days Qty: 14 0RF fluconazole [Diflucan] 150 mg tablet 150 mg PO Q3D Qty: 2 0RF benzonatate 100 mg capsule 100 mg PO BID PRN (Reason: cough) 7 Days Qty: 14 0RF doxycycline hyclate 100 mg capsule 100 mg PO BID 10 Days Qty: 20 0RF benzonatate 100 mg capsule 100 mg PO BID PRN (Reason: cough) Qty: 20 0RF albuterol sulfate 90 mcg/actuation aerosol powdr breath activated 2 inh inhalation Q4-6H PRN (Reason: shortness of breath or wheezing) Qty: 1 0RF ketorolac 10 mg tablet 10 mg PO TID PRN (Reason: pain) 5 Days Qty: 15 0RF azithromycin 250 mg tablet See Rx Instructions .ROUTE .COMPLEX Qty: 6 0RF Rx Instructions: For 250 mg dose pack: take 500 mg today (day 1), then 250 mg for 4 days (days 2-5) fluconazole 150 mg tablet 150 mg PO Q3D Qty: 2 0RF Nexplanon 68 mg implant subdermal cephalexin 500 mg capsule 500 mg PO Q8H 10 Days Qty: 30 0RF meloxicam 15 mg tablet 15 mg PO DAILY Qty: 14 0RF valacyclovir [Valtrex] 500 mg tablet 500 mg PO BID 5 Days Qty: 90 4RF Rx Instructions: take twice a day for 3 days, repeat as needed Referrals: Roney Cleveland MD [Primary Care Provider] -
[2023-07-29] MEDS: Albuterol/Iprat 2.5/0.5MG 3 ML AMPUL.NEB INHALE (07:43)
[2023-07-29 07:45] VITALS: PULSE 82; RESP 16; O2SAT 95
[2023-07-29] MEDS: predniSONE 20 MG TABLET 40 MG PO (08:01)
[2023-07-29] MEDS: guaiFEN/Codeine SF 200/20/10ML 10 ML LIQUID PO (08:01)
[2023-07-29 08:03] VITALS: BP 118/68; PULSE 84; RESP 16; TEMP 37.3; O2SAT 98
[2023-07-29 08:08] LABS: IDNOW Serial# 08D9AD1C; Strep A Nucleic Acid Positive (Negative)
[2023-07-29 08:48] LABS: Influenza A PCR NEGATIVE (Negative); Influenza B PCR NEGATIVE (Negative); Resp Syncy Virus RNA Qual PCR NEGATIVE (Negative); SARS COV2 PCR INHOUSE NEGATIVE (Negative)
[2023-07-29] MEDS: Amoxicillin/Potassium Clav 875 MG TABLET PO (09:15)
--- NOTE | 2023-07-29 09:20 | PC.NURSE ---
Addendum entered by Krishna Kebede 07/29/23 09:22: vss. Original Note: lung sounds cta. respirations even and unlabored. sats 98% RA. pt received breathing tx with respiratory. pt reporting cough/sore throat x 2 days; denies other sx. afebrile. cough improved with medications administered per jan. airway patent.
--- NOTE | 2023-07-29 09:22 | PC.NURSE ---
pt educated on use of abx. in agreemend with d/c.
== END 2023-07-29 09:36 | disposition home or self-care (01) ==
PROVIDERS: Emergency Provider Emergency Medicine; PCP Family Medicine
DX: J02.0 Streptococcal pharyngitis (principal); Z20.828 Contact with and (suspected) exposure to other viral communicable diseases; Z20.822 Contact with and (suspected) exposure to COVID-19
CPT/HCPCS: 0241U; 71046; 87651; 94640; 99284

== ENCOUNTER 2023-08-10 23:28 | Emergency (ER) | payer OTHER, SELFPAY ==
[2023-08-10 23:47] VITALS: BP 110/68; PULSE 83; RESP 18; TEMP 36.7; O2SAT 96; BMI 39.3
[2023-08-11 02:19] VITALS: BP 110/68; PULSE 67; RESP 16; TEMP 36.6; O2SAT 97
[2023-08-11 03:16] LABS: Appearance Urine Clear; Color Urine Yellow; Glucose Urine UA Negative (Negative); Leukocyte Esterase Urine Small (1+) (Negative); Nitrite Urine Negative (Negative); Specific Gravity - Urine 1.025 (1.005-1.025); UMIC TRIGGER UACC YES; Urine Blood Negative (Negative); Urine Ketones Negative (Negative); Urine Protein Negative (Neg-Trace)
[2023-08-11 03:21] LABS: Bacteria Urine None Seen (None Seen); Hyaline Casts Urine 0-2 /LPF (0-2); RBC Urine 0-2 /HPF (0-2); Squamous Epithelial Cell Urine 0-2 /HPF (0-2); UACC Culture Trigger YES
--- NOTE | 2023-08-11 03:30 | ED_ITS ---
HPI - Female Genitourinary General Chief complaint: Urogenital-Female Stated complaint: Rash Time Seen by Provider: 08/11/23 03:29 Source: patient Mode of arrival: ambulatory Limitations: no limitations History of Present Illness HPI Narrative: 33-year-old female who presents emergency department for evaluation of rectal and vaginal burning. The patient states that she had diarrhea for approximately 5 days. She states she was having 3-4 diarrheal stools which were green with no blood in them. She states that she gets frequent diarrhea and does have referral to see a arc welder to rule out possible Crohn's disease which is a condition that runs in her family. The patient states she was seen in urgent care clinic and was told that she had a fungal infection. She was started on an antifungal cream has been applying to her anal area with no relief of the burning sensation. She did take Imodium which did stop her diarrhea. Patient states that she now has a burning sensation in her vaginal area and dysuria with urinating but no frequency or urgency. She denied fever or chills. She has not noticed any bloody bowel movements. Related Data Home Medications Medication Instructions Recorded Confirmed etonogestrel 68 mg subdermal subdermal 09/29/20 09/26/21 implant (Nexplanon) Previous Rx's Medication Instructions Recorded cetirizine 10 mg tablet 10 mg PO DAILY 30 days #30 tabs 04/10/21 valacyclovir 500 mg tablet 500 mg PO BID 5 days #90 tabs 07/02/22 (Valtrex) meloxicam 15 mg tablet 15 mg PO DAILY #14 tabs 09/03/22 cephalexin 500 mg capsule 500 mg PO Q8H 10 days #30 caps 09/06/22 cholecalciferol (vitamin D3) 1,250 1,250 mcg PO QWEEK 3 months #13 09/08/22 mcg (50,000 unit) capsule caps amoxicillin 875 mg-potassium 1 tab PO Q12H 7 days #14 tabs 11/02/22 clavulanate 125 mg tablet fluconazole 150 mg tablet 150 mg PO Q3D 2 doses #2 tabs 11/02/22 (Diflucan) benzonatate 100 mg capsule 100 mg PO BID PRN cough 7 days #14 03/04/23 caps albuterol sulfate 90 mcg/actuation 2 inh inhalation Q4-6H PRN 03/16/23 breath activated powder inhaler shortness of breath or wheezing #1 ea azithromycin 250 mg tablet See Rx Instructions PO .COMPLEX #6 03/16/23 tabs benzonatate 100 mg capsule 100 mg PO BID PRN cough #20 caps 03/16/23 doxycycline hyclate 100 mg capsule 100 mg PO BID 10 days #20 caps 03/16/23 fluconazole 150 mg tablet 150 mg PO Q3D 2 doses #2 tabs 03/16/23 ketorolac 10 mg tablet 10 mg PO TID PRN pain 5 days #15 03/16/23 tabs amoxicillin 875 mg-potassium 1 tab PO BID #14 tabs 07/29/23 clavulanate 125 mg tablet prednisone 20 mg tablet 20 mg PO BID #10 tabs 07/29/23 Allergies Allergy/AdvReac Type Severity Reaction Status Date / Time SEASONAL ALLERGIES Allergy Unknown UNKNOWN Uncoded 03/16/23 08:46 PMFSH Past Medical History Medical History Refused influenza vaccine COVID-19 vaccination declined Left knee pain Furunculosis of axilla Hx of abnormal cervical Pap smear History of abscess of skin and subcutaneous tissue Depression with anxiety Morbid obesity Nasal congestion Acne comedone Family history of thyroid cancer Impaired fasting glucose Tension type headache Left anterior knee pain Migraines Wrist pain, right Nose disorder Surgical History No pertinent past surgical history Family History Family History Father No problems noted. Mother Hypertension Maternal Grandfather Alzheimers disease Parkinsons Sister Acute Crohn's disease with complication Diabetes mellitus Maternal Grandmother Skin cancer Thyroid cancer Brother Mental health disorder Social History Social History Housing: Apartment Alcohol intake: never Patient Tobacco Use Status: Never used Tobacco Smoked in Last 30 Days: No e-Cigarette/Vaping Use: Never Used Second Hand Smoke Exposure: No Use of substances other than those prescribed or required for medical reasons: No Advance Directives: No Advance Directives Information Provided: No Patient : No service: No Current occupational status: unemployed Cognitive needs: No Hearing needs: No Vision needs: No Physical Exam Vital Signs: Vital Signs: Last Vital Signs Temp 97.8 F 08/11/23 02:19 Pulse 67 08/11/23 02:19 Resp 16 08/11/23 02:19 BP 110/68 08/11/23 02:19 Pulse Ox 97 08/11/23 02:19 O2 Del Method Room Air 08/11/23 02:19 BMI result Body Mass Index 39.3 Vital signs were normal Exam: General: Awake, alert in no distress Head: Normocephalic, atraumatic EENT: PERRL, Lids normal, sclera normal, conjunctiva normal, nose normal , ears normal, throat without erythema or exudates Neck: Supple, no adenopathy, trachea midline and nontender Lung: breath sounds symmetric, no wheezing, rales or rhonchi Heart: regular rate and rhythm, normal S1, S2 no murmurs or rubs Abdomen: soft, non-tender, nondistended, normal bowel sounds Rectal area: Patient does have erythema to the perianal area with no discharge noted External vaginal exam: No significant erythema or evidence for discharge. Speculum and bimanual exam deferred Psych: Pleasant, cooperative Medical Decision Making Medical Decision Making [facility] Narrative: 33-year-old female who presents emergency department for evaluation of burning sensation in the rectal area after having 5 days of frequent green diarrheal stool and dysuria with burning sensation in her vaginal area. Patient's physical examination did reveal inflammation of the perirectal area with a normal appearing external vaginal exam. Your this time I think that the patient has irritation of her perirectal area secondary to her frequent diarrhea I do not think that she has a fungal infection. Patient was advised to use hemorrhoid ointment with hydrocortisone 3 times a day to the perirectal area into you rectal suppositories 3 times a day and after each bowel movement. She was given printed and verbal instructions discharged home. Patient's urinalysis was unremarkable Differential Diagnosis Differential includes was not limited to urinary tract infection, perirectal inflammation , vaginal inflammation Lab Data [facility] Lab Attestation statement: I reviewed the patient's lab results. Patient's urinalysis was positive for leukocyte esterase. Microscopic revealed 6-10 WBCs but no bacteria-this is not consistent with a urinary tract infection Labs: Lab Results 08/11/23 Range/Units 03:08 Urine Color Yellow Urine Appearance Clear Urine pH 6.0 (5.0-9.0) Ur Specific Palmer 1.025 (1.005-1.025) Urine Protein Negative (Neg-Trace) mg/dL Urine Glucose (UA) Negative (Negative) mg/dL Urine Ketones Negative (Negative) mg/dL Urine Blood Negative (Negative) Urine Nitrite Negative (Negative) Ur Leukocyte Esterase Small (1+) H (Negative) Urine RBC 0-2 (0-2) /HPF Urine WBC 6-10 H (0-5) /HPF Ur Squamous Epith Cells 0-2 (0-2) /HPF Urine Bacteria None Seen (None Seen) Hyaline Casts 0-2 (0-2) /LPF Discharge Plan Discharge Clinical Impression: Anal or rectal pain Patient Disposition: Home, Self-Care Additional Instructions: At this time I do not see any evidence for a fungal infection of your rectal area or your vaginal area. Use either Anusol ointment with hydrocortisone or preparation H ointment with hydrocortisone 3 times a day to the rectal/anal area to help reduce the burning sensation. Do this for 1-2 weeks. Use either Anusol suppositories or preparation H suppositories 3 times a day and after each bowel movement. This will help reduce painful bowel movements. Follow-up with your doctor in 2 days. Please return to the emergency department if your symptoms get worse or if you develop any symptoms that are concerning to you. Prescriptions: No Action cetirizine 10 mg tablet 10 mg PO DAILY 30 Days Qty: 30 0RF cholecalciferol (vitamin D3) 1,250 mcg (50,000 unit) capsule 1,250 mcg PO QWEEK 90 Days Qty: 13 0RF amoxicillin-pot clavulanate 875-125 mg tablet 1 tab PO Q12H 7 Days Qty: 14 0RF fluconazole [Diflucan] 150 mg tablet 150 mg PO Q3D Qty: 2 0RF benzonatate 100 mg capsule 100 mg PO BID PRN (Reason: cough) 7 Days Qty: 14 0RF doxycycline hyclate 100 mg capsule 100 mg PO BID 10 Days Qty: 20 0RF benzonatate 100 mg capsule 100 mg PO BID PRN (Reason: cough) Qty: 20 0RF albuterol sulfate 90 mcg/actuation aerosol powdr breath activated 2 inh inhalation Q4-6H PRN (Reason: shortness of breath or wheezing) Qty: 1 0RF ketorolac 10 mg tablet 10 mg PO TID PRN (Reason: pain) 5 Days Qty: 15 0RF azithromycin 250 mg tablet See Rx Instructions .ROUTE .COMPLEX Qty: 6 0RF Rx Instructions: For 250 mg dose pack: take 500 mg today (day 1), then 250 mg for 4 days (days 2-5) fluconazole 150 mg tablet 150 mg PO Q3D Qty: 2 0RF amoxicillin-pot clavulanate 875-125 mg tablet 1 tab PO BID Qty: 14 0RF prednisone 20 mg tablet 20 mg PO BID Qty: 10 0RF Nexplanon 68 mg implant subdermal cephalexin 500 mg capsule 500 mg PO Q8H 10 Days Qty: 30 0RF meloxicam 15 mg tablet 15 mg PO DAILY Qty: 14 0RF valacyclovir [Valtrex] 500 mg tablet 500 mg PO BID 5 Days Qty: 90 4RF Rx Instructions: take twice a day for 3 days, repeat as needed
== END 2023-08-11 04:28 | disposition home or self-care (01) ==
PROVIDERS: Emergency Provider Emergency Medicine Emergency Medical Services; PCP Family Medicine
DX: K62.89 Other specified diseases of anus and rectum (principal); Z79.899 Other long term (current) drug therapy
CPT/HCPCS: 81001; 87086; 99282; 99284

== ENCOUNTER 2023-08-17 02:32 | Emergency (ER) | payer OTHER, SELFPAY ==
[2023-08-17 02:36] VITALS: BP 122/65; PULSE 70; RESP 18; TEMP 36.7; O2SAT 96; BMI 42.3
[2023-08-17 03:10] VITALS: BP 118/66; PULSE 54; RESP 16; TEMP 36.7; O2SAT 96
--- NOTE | 2023-08-17 03:12 | PC.NURSE ---
Pt ca&ox4, no signs of distress. Pt reports she woke up around 0220 vomiting unsure if the vomiting is d/t headache or the fact that she was drinking earlier today. Pt reports headache on the right side of her head with an onset of 4pm friday and around 6pm she took a generic excedrin with no relief Pt denies n/v presently. Vitals stable. Plan of care ongoing.
--- NOTE | 2023-08-17 04:03 | PC.NURSE ---
Pt medicated per jan. Plan of care ongoing.
--- NOTE | 2023-08-17 04:16 | ED.HA ---
HPI - Headache General Chief Complaint: Headache Stated Complaint: Migraine Time Seen by Provider: 08/17/23 03:14 Source: patient Mode of arrival: ambulatory Limitations: no limitations History of Present Illness HPI Narrative: Patient comes to the emergency room complaining of a headache that started approximately 10 hours ago, patient complaining of photophobia. Patient took Excedrin without any relief, lying of nausea, no vomiting. Patient states she does have history of migraines, does not have a neurologist, only takes Excedrin p.r.n. patient states the pain is on the right side of the head Related Data Home Medications Medication Instructions Recorded Confirmed etonogestrel 68 mg subdermal subdermal 09/29/20 09/26/21 implant (Nexplanon) Previous Rx's Medication Instructions Recorded cetirizine 10 mg tablet 10 mg PO DAILY 30 days #30 tabs 04/10/21 valacyclovir 500 mg tablet 500 mg PO BID 5 days #90 tabs 07/02/22 (Valtrex) meloxicam 15 mg tablet 15 mg PO DAILY #14 tabs 09/03/22 cephalexin 500 mg capsule 500 mg PO Q8H 10 days #30 caps 09/06/22 cholecalciferol (vitamin D3) 1,250 1,250 mcg PO QWEEK 3 months #13 09/08/22 mcg (50,000 unit) capsule caps amoxicillin 875 mg-potassium 1 tab PO Q12H 7 days #14 tabs 11/02/22 clavulanate 125 mg tablet fluconazole 150 mg tablet 150 mg PO Q3D 2 doses #2 tabs 11/02/22 (Diflucan) benzonatate 100 mg capsule 100 mg PO BID PRN cough 7 days #14 03/04/23 caps albuterol sulfate 90 mcg/actuation 2 inh inhalation Q4-6H PRN 03/16/23 breath activated powder inhaler shortness of breath or wheezing #1 ea azithromycin 250 mg tablet See Rx Instructions PO .COMPLEX #6 03/16/23 tabs benzonatate 100 mg capsule 100 mg PO BID PRN cough #20 caps 03/16/23 doxycycline hyclate 100 mg capsule 100 mg PO BID 10 days #20 caps 03/16/23 fluconazole 150 mg tablet 150 mg PO Q3D 2 doses #2 tabs 03/16/23 ketorolac 10 mg tablet 10 mg PO TID PRN pain 5 days #15 03/16/23 tabs amoxicillin 875 mg-potassium 1 tab PO BID #14 tabs 07/29/23 clavulanate 125 mg tablet prednisone 20 mg tablet 20 mg PO BID #10 tabs 07/29/23 Allergies Allergy/AdvReac Type Severity Reaction Status Date / Time SEASONAL ALLERGIES Allergy Unknown UNKNOWN Uncoded 03/16/23 08:46 Review of Systems Review of Systems: Constitutional : No Weight loss, No Fever, No Chills, No Night Sweats, No Fatigue, No Malaise ENT/Mouth : No Hearing loss, No Ear Pain, No Nasal Congestion, No Sinus Pain, No Hoarseness, No sore throat, No Rhinorrhea, No Swallowing Difficulty Eyes: No Eye Pain, No Swelling, No Redness, No Foreign Body, No Discharge, No Vision Changes Cardiovascular : No Chest Pain, No SOB, No Dyspnea on Exertion, No Orthopnea, No Edema, No Palpitations Respiratory : No Cough, No Sputum, No Wheezing, No Smoke Exposure, No Dyspnea Gastrointestinal : No Nausea, No Vomiting, No Diarrhea, No Constipation, No abdominal Pain, No Hematochezia, No Melena Genitourinary : no irregular bleeding, No Dysuria, No Urinary Frequency, No Hematuria, No Urinary Incontinence, No Urgency, No Flank Pain, No Urinary Flow Changes, No Hesitancy Musculoskeletal : No joint pain, No Myalgias, No Joint Swelling Skin : No Skin Lesions, No rash Neuro : No Weakness, No Numbness, No Paresthesias, No Loss of Consciousness, No Dizziness, complaining of Headache Psych : No Anxiety/Panic, No Depression, No SI/HI/AH/VH, No Social Issues, Heme/Lymph: No Bruising, No Bleeding,No Lymphadenopathy Endocrine : No Polyuria, No Polydipsia, No Temperature Intolerance PMFSH Past Medical History Medical History Refused influenza vaccine COVID-19 vaccination declined Left knee pain Furunculosis of axilla Hx of abnormal cervical Pap smear History of abscess of skin and subcutaneous tissue Depression with anxiety Morbid obesity Nasal congestion Acne comedone Family history of thyroid cancer Impaired fasting glucose Tension type headache Left anterior knee pain Migraines Wrist pain, right Nose disorder Surgical History No pertinent past surgical history Family History Family History Father No problems noted. Mother Hypertension Maternal Grandfather Alzheimers disease Parkinsons Sister Acute Crohn's disease with complication Diabetes mellitus Maternal Grandmother Skin cancer Thyroid cancer Brother Mental health disorder Social History Social History Housing: Apartment Alcohol intake: current Patient Tobacco Use Status: Never used Tobacco Smoked in Last 30 Days: No e-Cigarette/Vaping Use: Never Used Second Hand Smoke Exposure: No Use of substances other than those prescribed or required for medical reasons: Yes Substance Use Type: Marijuana Advance Directives: No Advance Directives Information Provided: No service: No Current occupational status: unemployed Cognitive needs: No Hearing needs: No Vision needs: No Physical Exam Vital Signs: Vital Signs: Last Vital Signs Temp 98.0 F 08/17/23 03:10 Pulse 54 08/17/23 03:10 Resp 16 08/17/23 03:10 BP 118/66 08/17/23 03:10 Pulse Ox 96 08/17/23 03:10 O2 Del Method Room Air 08/17/23 03:10 BMI result Body Mass Index 42.3 Const: Other: Appearance: Alert. Oriented X3. No acute distress. Eyes: Pupils equal, round and reactive to light. Patient does have photophobia ENT: Pharynx normal. Neck: Normal inspection. Neck supple. No lymph nodes noted. No crepitus CVS: Normal heart rate and rhythm. Pulses normal. Normal S1 and S2 Respiratory: No respiratory distress. Breath sounds normal. No Wheezing. No rales Abdomen: Soft and nontender. No rigidity. No distention. Skin: Skin warm and dry. Normal skin color. Normal skin turgor. Extremities: No lower extremity edema. No Lacerations. No Rash Neuro: Oriented X 3. No motor deficit. No sensory deficit. Moving all extremities. No slurred speech. CN 2 through 12 grossly intact Psych: calm, cooperative, normal affect Course Course Course Narrative: -patient is eating any fluids, IV ketorolac, Reglan and Benadryl. Medications Administered Discontinued Medications Generic Name Dose Route Start Last Admin Trade Name Freq PRN Reason Stop Dose Admin Diphenhydramine HCl 12.5 mg 08/17/23 03:24 08/17/23 03:52 Diphenhydramine Hcl 50 Mg/Ml Vial IVPUSH 08/17/23 03:25 12.5 mg ONCE ONE Administration Sodium Chloride 1,000 mls @ 999 mls/hr 08/17/23 03:24 08/17/23 03:53 Ns IVCONT 08/17/23 04:24 999 mls/hr .Q1H1M ONE Administration Ketorolac Tromethamine 30 mg 08/17/23 03:18 08/17/23 03:53 Ketorolac Tromethamine 30 Mg/Ml Vial IVPUSH 08/17/23 03:19 30 mg ONCE ONE Administration Metoclopramide HCl 10 mg 08/17/23 03:24 08/17/23 03:53 Metoclopramide Hcl 10 Mg/2 Ml Vial IVPUSH 08/17/23 03:25 10 mg ONCE ONE Administration Medical Decision Making Medical Decision Making MDM Narrative: -patient states that after the IV medication cocktail above-mentioned, she feels much better, headache and photophobia resolved. -due to system failure, but [employer] could not be printed out, patient was given prescriptions written by hand Differential Diagnosis Differential Diagnoses: The differential diagnosis associated with the presentation includes (Tension headache, migraine headache) Discharge Plan Discharge Clinical Impression: Migraine Patient Disposition: Home, Self-Care Instructions: Migraine Headache (ED) Additional Instructions: Please follow-up with your primary care physician tomorrow. If you have any worsening or new symptoms, please return to the emergency room or call 911 Prescriptions: No Action cetirizine 10 mg tablet 10 mg PO DAILY 30 Days Qty: 30 0RF cholecalciferol (vitamin D3) 1,250 mcg (50,000 unit) capsule 1,250 mcg PO QWEEK 90 Days Qty: 13 0RF amoxicillin-pot clavulanate 875-125 mg tablet 1 tab PO Q12H 7 Days Qty: 14 0RF fluconazole [Diflucan] 150 mg tablet 150 mg PO Q3D Qty: 2 0RF benzonatate 100 mg capsule 100 mg PO BID PRN (Reason: cough) 7 Days Qty: 14 0RF doxycycline hyclate 100 mg capsule 100 mg PO BID 10 Days Qty: 20 0RF benzonatate 100 mg capsule 100 mg PO BID PRN (Reason: cough) Qty: 20 0RF albuterol sulfate 90 mcg/actuation aerosol powdr breath activated 2 inh inhalation Q4-6H PRN (Reason: shortness of breath or wheezing) Qty: 1 0RF ketorolac 10 mg tablet 10 mg PO TID PRN (Reason: pain) 5 Days Qty: 15 0RF azithromycin 250 mg tablet See Rx Instructions .ROUTE .COMPLEX Qty: 6 0RF Rx Instructions: For 250 mg dose pack: take 500 mg today (day 1), then 250 mg for 4 days (days 2-5) fluconazole 150 mg tablet 150 mg PO Q3D Qty: 2 0RF amoxicillin-pot clavulanate 875-125 mg tablet 1 tab PO BID Qty: 14 0RF prednisone 20 mg tablet 20 mg PO BID Qty: 10 0RF Nexplanon 68 mg implant subdermal cephalexin 500 mg capsule 500 mg PO Q8H 10 Days Qty: 30 0RF meloxicam 15 mg tablet 15 mg PO DAILY Qty: 14 0RF valacyclovir [Valtrex] 500 mg tablet 500 mg PO BID 5 Days Qty: 90 4RF Rx Instructions: take twice a day for 3 days, repeat as needed
== END 2023-08-17 06:01 | disposition home or self-care (01) ==
PROVIDERS: Emergency Provider Emergency Medicine
DX: G43.909 Migraine, unspecified, not intractable, without status migrainosus (principal); H53.143 Visual discomfort, bilateral; R11.2 Nausea with vomiting, unspecified; Z79.899 Other long term (current) drug therapy
CPT/HCPCS: 96361; 96374; 96375; 99284; 99285; J1200; J1885; J2765

== ENCOUNTER 2023-08-25 05:05 | Emergency (ER) | payer OTHER, SELFPAY ==
[2023-08-25 05:12] VITALS: BP 132/81; PULSE 84; RESP 18; TEMP 36.9; O2SAT 98; BMI 39.7
[2023-08-25 06:09] LABS: MANUAL DIFF FLAG NO
[2023-08-25 06:17] LABS: Basophils Percent Auto 0.3 % (0-2); Eosinophils Absolute Auto 0.1 X10*3/uL (0.0-0.4); Eosinophils Percent Auto 1.1 % (0-4); Hematocrit 41.6 % (37.0-47.0); Hemoglobin 13.7 g/dl (12.0-16.0); Imm Gran Abs Auto 0.03 X10*3/uL (0.00-0.03); Imm Gran Pct Auto 0.2 % (0.0-0.4); Lymphocytes Absolute Auto 3.5 X10*3/uL (1.2-4.9); Lymphocytes Percent Auto 27.9 % (20-40); Mean Corpuscular HGB Conc 32.9 g/dl (31.0-35.0); Mean Corpuscular Hemoglobin 30.6 pg (27.0-33.0); Mean Corpuscular Volume 92.9 fL (80.0-98.0); Mean Platelet Volume 10.3 fL (9.4-12.3); Monocytes Absolute Auto 0.8 X10*3/uL (0.1-1.2); Monocytes Percent Auto 6.2 % (2-11); Neutrophils Absolute Auto 8.1 x10*3/uL (2.0-8.3); Neutrophils Percent Auto 64.3 % (45-73); Platelet Count 258 X10*3/uL (160-400); Red Blood Count 4.48 X10*6/uL (4.20-5.50); Red Cell Distribution Width 12.5 % (11.0-16.0); White Blood Count 12.5 X10*3/uL (4.8-10.8)
[2023-08-25 06:23] LABS: Alanine Aminotransferase 22 U/L (0-31); Albumin Level 3.9 g/dL (3.5-5.0); Alkaline Phosphatase 75 U/L (39-117); Anion Gap 14 (12-20); Aspartate Amino Transferase 15 U/L (5-31); Bilirubin Direct 0.1 mg/dL (0.0-0.5); Bilirubin Total 0.3 mg/dL (0.0-1.0); Blood Urea Nitrogen 13 mg/dL (9-16); Calcium 8.9 mg/dL (8.4-10.2); Carbon Dioxide 20 mmol/L (22-29); Chloride 110 mmol/L (96-108); Creatinine Clr Calc Pharmacy 97.8; Estimated Glomerular Filt Rate > 60; Glucose Random 109 mg/dL (60-115); Lipase 25 U/L (8-78); Sodium 140 mmol/L (135-145); Total Protein 6.7 g/dL (6.5-8.0)
--- NOTE | 2023-08-25 06:49 | ED.GENADULT ---
HPI - General Adult General Chief complaint: Headache Stated complaint: Vomiting, stomach ache, headache Time Seen by Provider: 08/25/23 06:47 Source: patient Mode of arrival: ambulatory Limitations: no limitations History of Present Illness HPI narrative: This is a 33-year-old female presenting with fatigue, malaise, myalgias all which started at approximately 4 in the morning, reports she vomited her dinner from last night, reports diffuse abdominal discomfort throughout, unable to localize 1 spot that hurts more than another. Unable to tell me what makes her abdominal pain better or worse. Also reports she has a migraine which feels like her typical with photosensitivity associated with it. Denies trauma. Tells me she has a history of migraines however has not picked up her prescription for migraines. Denies weakness, chest pain, shortness of breath, hematemesis, dizziness, neck pain Related Data Home Medications Medication Instructions Recorded Confirmed etonogestrel 68 mg subdermal subdermal 09/29/20 09/26/21 implant (Nexplanon) Previous Rx's Medication Instructions Recorded cetirizine 10 mg tablet 10 mg PO DAILY 30 days #30 tabs 04/10/21 valacyclovir 500 mg tablet 500 mg PO BID 5 days #90 tabs 07/02/22 (Valtrex) meloxicam 15 mg tablet 15 mg PO DAILY #14 tabs 09/03/22 cephalexin 500 mg capsule 500 mg PO Q8H 10 days #30 caps 09/06/22 cholecalciferol (vitamin D3) 1,250 1,250 mcg PO QWEEK 3 months #13 09/08/22 mcg (50,000 unit) capsule caps amoxicillin 875 mg-potassium 1 tab PO Q12H 7 days #14 tabs 11/02/22 clavulanate 125 mg tablet fluconazole 150 mg tablet 150 mg PO Q3D 2 doses #2 tabs 11/02/22 (Diflucan) benzonatate 100 mg capsule 100 mg PO BID PRN cough 7 days #14 03/04/23 caps albuterol sulfate 90 mcg/actuation 2 inh inhalation Q4-6H PRN 03/16/23 breath activated powder inhaler shortness of breath or wheezing #1 ea azithromycin 250 mg tablet See Rx Instructions PO .COMPLEX #6 03/16/23 tabs benzonatate 100 mg capsule 100 mg PO BID PRN cough #20 caps 03/16/23 doxycycline hyclate 100 mg capsule 100 mg PO BID 10 days #20 caps 03/16/23 fluconazole 150 mg tablet 150 mg PO Q3D 2 doses #2 tabs 03/16/23 ketorolac 10 mg tablet 10 mg PO TID PRN pain 5 days #15 03/16/23 tabs amoxicillin 875 mg-potassium 1 tab PO BID #14 tabs 07/29/23 clavulanate 125 mg tablet prednisone 20 mg tablet 20 mg PO BID #10 tabs 07/29/23 diphenhydramine HCl 25 mg capsule 25 mg PO TID PRN allergic reaction 08/25/23 (Benadryl) #20 caps ketorolac 10 mg tablet 10 mg PO TID PRN pain 5 days #15 08/25/23 tabs metoclopramide HCl 10 mg tablet 10 mg PO Q6H PRN headache #20 tabs 08/25/23 (Reglan) Allergies Allergy/AdvReac Type Severity Reaction Status Date / Time SEASONAL ALLERGIES Allergy Unknown UNKNOWN Uncoded 03/16/23 08:46 Review of Systems Review of Systems: Constitutional : No Weight loss, No Fever, No Chills, No Fatigue, No Malaise ENT/Mouth : No sore throat, No Rhinorrhea Eyes: No Eye Pain, No Swelling, No Redness Cardiovascular : No Chest Pain, No SOB, No Dyspnea on Exertion, No Orthopnea, No Edema, No Palpitations Respiratory : No Cough, No Sputum, No Wheezing Gastrointestinal : No Nausea, + Vomiting, No Diarrhea, No Constipation, + abdominal Pain, No Hematochezia, No Melena Genitourinary : No Dysuria, No Urinary Frequency, No Hematuria, Musculoskeletal : No joint pain, No Myalgias, No Joint Swelling Skin : No Skin Lesions, No rash Neuro : No Weakness, No Numbness, No Dizziness, + Headache Psych : No Anxiety/Panic, No Depression All other systems reviewed and are negative Yes all other systems are reviewed and are negative [facility] Past Medical History Attestation statement: The following information was validated with the patient. Source: old records reviewed and nursing notes reviewed Medical History Refused influenza vaccine COVID-19 vaccination declined Left knee pain Furunculosis of axilla Hx of abnormal cervical Pap smear History of abscess of skin and subcutaneous tissue Depression with anxiety Morbid obesity Nasal congestion Acne comedone Family history of thyroid cancer Impaired fasting glucose Tension type headache Left anterior knee pain Migraines Wrist pain, right Nose disorder Surgical History No pertinent past surgical history Family History Family History Father No problems noted. Mother Hypertension Maternal Grandfather Alzheimers disease Parkinsons Sister Acute Crohn's disease with complication Diabetes mellitus Maternal Grandmother Skin cancer Thyroid cancer Brother Mental health disorder Social History Social History Housing: Apartment Alcohol intake: current Alcohol intake frequency: holidays/special occasions only Patient Tobacco Use Status: Never used Tobacco Smoked in Last 30 Days: No e-Cigarette/Vaping Use: Never Used Second Hand Smoke Exposure: No Use of substances other than those prescribed or required for medical reasons: Yes Substance Use Type: Marijuana Advance Directives: No Advance Directives Information Provided: Yes Patient : No service: No Current occupational status: unemployed Cognitive needs: No Hearing needs: No Vision needs: No Physical Exam ED Vital Signs: Vital Signs - 24 hr 08/25/23 05:12 Temperature 98.4 F Pulse Rate 84 Respiratory Rate 18 Blood Pressure 132/81 Pulse Oximetry 98 Oxygen Delivery Method Room Air BMI result Body Mass Index 39.7 vss Appearance: Alert.? Oriented X3.? No acute distress.? Head: Normocephalic, atraumatic, no step-offs or deformities Eyes: Pupils equal, round and reactive to light.? Neck: Normal inspection.? Neck supple.? CVS: Normal heart rate and rhythm.? Pulses normal.? Respiratory: No respiratory distress.? Breath sounds normal.? Abdomen: Soft and nontender.?Normoactive bs thorughhout . Negative murphys mcburneys and rosving Skin: Skin warm and dry.? Normal skin color.? Normal skin turgor.? Extremities: No lower extremity edema.? No calf ttp. 5/5 strength to bilateral upper and lower extremities Back: No midline tenderness, no C-spine tenderness, full range of motion, no CVA tenderness bilaterally Neuro: Oriented X 3.? No motor deficit.? No sensory deficit. CN 2-12 intact. Normal finger to nose, heel to pol[place], steady tandem gait w/ normal coordination. Negative romberg and pronator drift NIHSS- 0 Course Reevaluation(s) Reevaluation #1: CBC with slight leukocytosis 12.5 without a shift, leukocytosis likely reactive secondary to nausea and vomiting I do not suspect infection. Chemistry with no acute findings requiring intervention negative beta hCG normal lipase. Patient was given a migraine cocktail, will re-evaluate in about an hour. Time: 09:10 Reevaluation #2: Pain has completely resolved. Patient states she is feeling much better. Would like to go home. She sitting in the stretcher were on her phone appears comfortable. Requesting work note. Educated patient on diagnosis and treatment plan, answered all question, patient verbalizes understanding. At this time patient will be discharged home, advised to return with new or worsening symptoms. Educated on worrisome signs and symptoms and when to return. At this time I feel comfortable discharge home. At time of discharge neurological assessment nonfocal ambulatory steady gait normal coordination and alert and oriented x4. Tollerating PO at time of DC Time: 11:25 Medications Administered Discontinued Medications Generic Name Dose Route Start Last Admin Trade Name Freq PRN Reason Stop Dose Admin Diphenhydramine HCl 25 mg 08/25/23 07:45 08/25/23 09:17 Diphenhydramine Hcl 50 Mg/Ml Vial IVPUSH 08/25/23 07:46 25 mg ONCE ONE Administration Sodium Chloride 1,000 mls @ 999 mls/hr 08/25/23 07:45 08/25/23 10:40 Ns IV 08/25/23 08:45 Infused .Q1H1M RENEE Infusion Ketorolac Tromethamine 30 mg 08/25/23 07:45 08/25/23 09:16 Ketorolac Tromethamine 15 Mg/Ml Vial IVPUSH 08/25/23 07:46 30 mg ONCE ONE Administration Metoclopramide HCl 10 mg 08/25/23 07:45 08/25/23 09:16 Metoclopramide Hcl 10 Mg/2 Ml Vial IVPUSH 08/25/23 07:46 10 mg ONCE ONE Administration Medical Decision Making Medical Decision Making [facility] Narrative: 0715 33 yo f presents w/ diffuse abd pain w/ a/c vomiting& nausea also complaining of migraine since this am PE benign neuro nonfocal. Cerebellar intact Concerns for migraine vs viral illness. Unlikely ICH, stroke, posterior stroke, meningitis, encephalitis, hydrocephalus. Abd pain likely viral unlike acute abdomen, appendicitis, cholecystitis, pancreatitis, diverticuliits, or obstruction. WIll rule out electrolyte abnormalities and UTI Plan- labs, urine. Differential Diagnosis Differential Diagnoses: The differential diagnosis associated with the presentation includes Concerns for migraine vs viral illness. Unlikely ICH, stroke, posterior stroke, meningitis, encephalitis, hydrocephalus. Abd pain likely viral unlike acute abdomen, appendicitis, cholecystitis, pancreatitis, diverticuliits, or obstruction. WIll rule out electrolyte abnormalities and UTI Admission/Observation Consideration of admission/observation: Escalation of care including admission/observation considered Lab Data MDM Lab Attestation statement: I reviewed the patient's lab results. 08/25/23 06:04 08/25/23 06:04 Labs: Lab Results 08/25/23 Range/Units 06:04 WBC 12.5 H (4.8-10.8) X10*3/uL RBC 4.48 (4.20-5.50) X10*6/uL Hgb 13.7 (12.0-16.0) g/dl Hct 41.6 (37.0-47.0) % MCV 92.9 (80.0-98.0) fL MCH 30.6 (27.0-33.0) pg MCHC 32.9 (31.0-35.0) g/dl RDW 12.5 (11.0-16.0) % Plt Count 258 (160-400) X10*3/uL MPV 10.3 (9.4-12.3) fL Immature Gran % (Auto) 0.2 (0.0-0.4) % Neut % (Auto) 64.3 (45-73) % Lymph % (Auto) 27.9 (20-40) % [place] % (Auto) 6.2 (2-11) % Eos % (Auto) 1.1 (0-4) % Baso % (Auto) 0.3 (0-2) % Lymph # (Auto) 3.5 (1.2-4.9) X10*3/uL [place] # (Auto) 0.8 (0.1-1.2) X10*3/uL Eos # (Auto) 0.1 (0.0-0.4) X10*3/uL Baso # (Auto) 0.0 (0.0-0.2) X10*3/uL Abs Immat Gran (auto) 0.03 (0.00-0.03) X10*3/uL Absolute Neuts (auto) 8.1 (2.0-8.3) x10*3/uL Absolute Nucleated RBC 0.000 (0.0-0.012) X10*3/uL Nucleated RBC % (auto) 0.0 (0.0-0.2) /100WBC Sodium 140 (135-145) mmol/L Potassium 4.0 (3.3-5.1) mmol/L Chloride 110 H (96-108) mmol/L Carbon Dioxide 20 L (22-29) mmol/L Anion Gap 14 (12-20) BUN 13 (9-16) mg/dL Creatinine 0.87 (0.5-1.4) mg/dL Estim Creat Clear Calc 97.8 Estimated GFR > 60 Random Glucose 109 (60-115) mg/dL Calcium 8.9 D (8.4-10.2) mg/dL Total Bilirubin 0.3 (0.0-1.0) mg/dL Direct Bilirubin 0.1 (0.0-0.5) mg/dL AST 15 (5-31) U/L ALT 22 (0-31) U/L Alkaline Phosphatase 75 (39-117) U/L Total Protein 6.7 (6.5-8.0) g/dL Albumin 3.9 (3.5-5.0) g/dL Lipase 25 (8-78) U/L Beta HCG, Quant < 2 mIU/mL Tests considered The following testing was considered but not selected: Considered a ct abd/pelvis however no abd tenderness to palpation. Leukocytosis likely reactive and seocndary to N/V Critical Care Time Critical Care Time Critical Care Time: No Discharge Plan Discharge Clinical Impression: Acute migraine, Abdominal pain Patient Disposition: Home, Self-Care Instructions: Migraine Headache (ED), Abdominal Pain (ED) Additional Instructions: Take your medications as prescribed. If you were prescribed antibiotics today, it is important that you take your medication to their entirety, do not skip any doses, do not finish them early. Follow-up with your primary care provider this week. Return to the emergency department with new or worsening symptoms. Such as fevers, chills, chest pain, shortness of breath, nausea, vomiting, dizziness, headache, vision changes, lethargy In case of emergency call 911 please take plan and Benadryl together, do not take Reglan alone and can cause involuntary muscle spasms. Toradol has been sent to your pharmacy, you tolerated this well in the department. Please take this as prescribed do not take this with ibuprofen, or other NSAIDs, do not mix this with alcohol. Side effects of this medication including increased risk for bleeding and possible kidney injury. Prescriptions: New ketorolac 10 mg tablet 10 mg PO TID PRN (Reason: pain) 5 Days Qty: 15 0RF diphenhydramine HCl [Benadryl] 25 mg capsule 25 mg PO TID PRN (Reason: allergic reaction) Qty: 20 0RF metoclopramide HCl [Reglan] 10 mg tablet 10 mg PO Q6H PRN (Reason: headache) Qty: 20 0RF No Action cetirizine 10 mg tablet 10 mg PO DAILY 30 Days Qty: 30 0RF cholecalciferol (vitamin D3) 1,250 mcg (50,000 unit) capsule 1,250 mcg PO QWEEK 90 Days Qty: 13 0RF amoxicillin-pot clavulanate 875-125 mg tablet 1 tab PO Q12H 7 Days Qty: 14 0RF fluconazole [Diflucan] 150 mg tablet 150 mg PO Q3D Qty: 2 0RF benzonatate 100 mg capsule 100 mg PO BID PRN (Reason: cough) 7 Days Qty: 14 0RF doxycycline hyclate 100 mg capsule 100 mg PO BID 10 Days Qty: 20 0RF benzonatate 100 mg capsule 100 mg PO BID PRN (Reason: cough) Qty: 20 0RF albuterol sulfate 90 mcg/actuation aerosol powdr breath activated 2 inh inhalation Q4-6H PRN (Reason: shortness of breath or wheezing) Qty: 1 0RF ketorolac 10 mg tablet 10 mg PO TID PRN (Reason: pain) 5 Days Qty: 15 0RF azithromycin 250 mg tablet See Rx Instructions .ROUTE .COMPLEX Qty: 6 0RF Rx Instructions: For 250 mg dose pack: take 500 mg today (day 1), then 250 mg for 4 days (days 2-5) fluconazole 150 mg tablet 150 mg PO Q3D Qty: 2 0RF amoxicillin-pot clavulanate 875-125 mg tablet 1 tab PO BID Qty: 14 0RF prednisone 20 mg tablet 20 mg PO BID Qty: 10 0RF Nexplanon 68 mg implant subdermal cephalexin 500 mg capsule 500 mg PO Q8H 10 Days Qty: 30 0RF meloxicam 15 mg tablet 15 mg PO DAILY Qty: 14 0RF valacyclovir [Valtrex] 500 mg tablet 500 mg PO BID 5 Days Qty: 90 4RF Rx Instructions: take twice a day for 3 days, repeat as needed Referrals: [facility] [place] Neuro/Sleep [Provider Group] - 1 week Physician,Unknown J [Primary Care Provider] - 2 days Stand Alone Forms: Work/School Release
[2023-08-25 07:09] LABS: HCG Quantitative < 2 mIU/mL
[2023-08-25] MEDS: 0.9 % Sodium Chloride 1,000 ML 999 ML IV (09:10)
[2023-08-25] MEDS: Metoclopramide HCl 10 MG/2 ML VIAL IVPUSH (09:16)
[2023-08-25] MEDS: Ketorolac Tromethamine 15 MG/ML VIAL 30 MG IVPUSH (09:16)
[2023-08-25] MEDS: diphenhydrAMINE HCL 50 MG/ML VIAL 25 MG IVPUSH (09:17)
[2023-08-25 11:44] VITALS: BP 123/64; PULSE 63; RESP 16; O2SAT 100
== END 2023-08-25 11:47 | disposition home or self-care (01) ==
PROVIDERS: Physician Assistant; Emergency Provider Emergency Medicine
DX: G43.909 Migraine, unspecified, not intractable, without status migrainosus (principal); M79.10 Myalgia, unspecified site; R53.83 Other fatigue; R11.2 Nausea with vomiting, unspecified; R10.9 Unspecified abdominal pain; Z79.899 Other long term (current) drug therapy
CPT/HCPCS: 36415; 80053; 82248; 83690; 84702; 85025; 96361; 96374; 96375; 99284; J1200; J1885; J2765

== ENCOUNTER 2023-10-02 18:35 | Emergency (ER) | payer OTHER, SELFPAY ==
[2023-10-02 18:38] VITALS: BP 139/67; PULSE 102; RESP 18; TEMP 37.1; O2SAT 99; BMI 40.6
--- NOTE | 2023-10-02 18:39 | ED.GENADULT ---
HPI - General Adult General Chief complaint: General Medical Stated complaint: cough,migraine,hot and cold sweats` Time Seen by Provider: 10/02/23 19:36 Source: patient Mode of arrival: ambulatory Limitations: no limitations History of Present Illness HPI narrative: Patient is a 33-year-old female who presents emergency department for evaluation of multiple complaints. She reports 3-4 days with productive cough, yellow phlegm. States that her nieces are currently ill with upper respiratory symptoms also. Since yesterday she has been experiencing a migraine headache, right-sided, with photophobia, consistent with past migraines. Migraine was unrelieved with Excedrin and ibuprofen. She denies any red flag symptoms associated with this headache and that feels consistent with her prior migraines. She also expresses increased stress as her mother is terminally ill and hospitalized at this time. She denies fevers, chills, dizziness, lightheadedness, vision changes, neck pain, neck stiffness, chest pain, shortness of breath, difficulty breathing, nausea vomiting, abdominal pain Related Data Home Medications Medication Instructions Recorded Confirmed etonogestrel 68 mg subdermal subdermal 09/29/20 09/26/21 implant (Nexplanon) Previous Rx's Medication Instructions Recorded cetirizine 10 mg tablet 10 mg PO DAILY 30 days #30 tabs 04/10/21 valacyclovir 500 mg tablet 500 mg PO BID 5 days #90 tabs 07/02/22 (Valtrex) meloxicam 15 mg tablet 15 mg PO DAILY #14 tabs 09/03/22 cephalexin 500 mg capsule 500 mg PO Q8H 10 days #30 caps 09/06/22 cholecalciferol (vitamin D3) 1,250 1,250 mcg PO QWEEK 3 months #13 09/08/22 mcg (50,000 unit) capsule caps amoxicillin 875 mg-potassium 1 tab PO Q12H 7 days #14 tabs 11/02/22 clavulanate 125 mg tablet fluconazole 150 mg tablet 150 mg PO Q3D 2 doses #2 tabs 11/02/22 (Diflucan) benzonatate 100 mg capsule 100 mg PO BID PRN cough 7 days #14 03/04/23 caps albuterol sulfate 90 mcg/actuation 2 inh inhalation Q4-6H PRN 03/16/23 breath activated powder inhaler shortness of breath or wheezing #1 ea azithromycin 250 mg tablet See Rx Instructions PO .COMPLEX #6 03/16/23 tabs benzonatate 100 mg capsule 100 mg PO BID PRN cough #20 caps 03/16/23 doxycycline hyclate 100 mg capsule 100 mg PO BID 10 days #20 caps 03/16/23 fluconazole 150 mg tablet 150 mg PO Q3D 2 doses #2 tabs 03/16/23 ketorolac 10 mg tablet 10 mg PO TID PRN pain 5 days #15 03/16/23 tabs amoxicillin 875 mg-potassium 1 tab PO BID #14 tabs 07/29/23 clavulanate 125 mg tablet prednisone 20 mg tablet 20 mg PO BID #10 tabs 07/29/23 diphenhydramine HCl 25 mg capsule 25 mg PO TID PRN allergic reaction 08/25/23 (Benadryl) #20 caps ketorolac 10 mg tablet 10 mg PO TID PRN pain 5 days #15 08/25/23 tabs metoclopramide HCl 10 mg tablet 10 mg PO Q6H PRN headache #20 tabs 08/25/23 (Reglan) fjcrualwuj-sdcmymbepiybg-xpslwgse 1 cap PO Q4-6H PRN pain #14 caps 10/02/23 50 mg-300 mg-40 mg capsule (Fioricet) ibuprofen 600 mg tablet 600 mg PO Q8H PRN fever or pain 10/02/23 #30 tabs ondansetron 4 mg disintegrating 4 mg PO Q8H PRN nausea and 10/02/23 tablet vomiting #10 tabs Allergies Allergy/AdvReac Type Severity Reaction Status Date / Time SEASONAL ALLERGIES Allergy Unknown UNKNOWN Uncoded 10/02/23 18:41 Review of Systems Review of Systems: Yes all other systems are reviewed and are negative PMFSH Past Medical History Attestation statement: The following information was validated with the patient. Source: old records reviewed Medical History Refused influenza vaccine COVID-19 vaccination declined Left knee pain Furunculosis of axilla Hx of abnormal cervical Pap smear History of abscess of skin and subcutaneous tissue Depression with anxiety Morbid obesity Nasal congestion Acne comedone Family history of thyroid cancer Impaired fasting glucose Tension type headache Left anterior knee pain Migraines Wrist pain, right Nose disorder Surgical History No pertinent past surgical history Family History Family History Father No problems noted. Mother Hypertension Maternal Grandfather Alzheimers disease Parkinsons Sister Acute Crohn's disease with complication Diabetes mellitus Maternal Grandmother Skin cancer Thyroid cancer Brother Mental health disorder Social History Housing: Apartment Alcohol intake: current Alcohol intake frequency: holidays/special occasions only Patient Tobacco Use Status: Never used Tobacco Smoked in Last 30 Days: No e-Cigarette/Vaping Use: Never Used Second Hand Smoke Exposure: No Use of substances other than those prescribed or required for medical reasons: Yes Substance Use Type: Marijuana Substance Use Frequency: Chronic Longstanding Advance Directives: No Advance Directives Information Provided: No Patient : No service: No Current occupational status: unemployed Cognitive needs: No Hearing needs: No Vision needs: No Physical Exam ED Vital Signs: Vital Signs - 24 hr 10/02/23 18:38 Temperature 98.8 F Pulse Rate 102 H Respiratory Rate 18 Blood Pressure 139/67 Pulse Oximetry 99 Oxygen Delivery Method Room Air BMI result Body Mass Index 40.6 Appearance: Alert.?Oriented to person, place and time. No acute distress.?Normal affect. Eyes: Pupils equal, round and reactive to light.? ENT: Pharynx normal.??TM normal bilaterally. Neck: Normal inspection.? Neck supple.??FROM. No nuchal rigidity. CVS: Heart sounds normal. Normal heart rate and rhythm.? Pulses normal.?? Respiratory: No respiratory distress.? Lung sounds clear to auscultation bilaterally?? Abdomen: Soft and non-tender. Normoactive bowel sounds. ? Skin: Skin warm and dry.? Normal skin color.? ?? Extremities: No lower extremity edema.? ? Neuro: Moves all extremities spontaneously. Sensation intact bilaterally. CN II-XII intact. No focal neuro deficits. Ambulates with normal steady gait. Course Course Course Narrative: This is a rapid medical exam: Additional HPI, ROS, PE not included below will be deferred to primary provider. Patient is a 33-year-old female presenting to the emergency department with complaint of migraine as well as productive cough and sweating. She reports history of migraines in the past, but is under stress as her mother is currently inpatient and is expected to pass away in the next few days. She states nieces have similar cough symptoms. Has taked ibuprofen and excedrin with little relief. Plan: swab for flu/Covid Medications Administered Discontinued Medications Generic Name Dose Route Start Last Admin Trade Name Freq PRN Reason Stop Dose Admin Acetaminophen/Butalbital/Caffeine 1 tab 10/02/23 20:17 10/02/23 20:32 Butalb/Acetamin/Caff 50/325/40 Tablet PO 10/02/23 20:18 1 tab ONCE ONE Administration Medical Decision Making Medical Decision Making [facility] Narrative: Patient is a 33-year-old female who presents emergency department for evaluation of cough, fatigue, and migraine headache as per HPI. At the time my examination she is overall well-appearing, nontoxic, afebrile. She is without tachypnea or hypoxia. No respiratory distress. Lung sounds are clear bilaterally. Migraine headache which feels consistent with her prior episodes, no new findings, red flag symptoms, or recent injury. No meningismus. Low suspicion for ICH/SDH/CVA, would defer CT imaging of the head at this time. Trialed Fioricet for migraine management with improvement in migraine headache. She is noted to be influenza A positive, given duration of symptoms would not be a candidate for Tamiflu at this time. Clinically low suspicion for pneumonia, would defer chest x-ray. Discussed conservative treatment, at this time feel that she is stable for discharge home, outpatient follow-up with primary care provider, discussed worrisome signs and symptoms that would warrant re-evaluation in the emergency department. All questions answered. Stable for discharge. Differential Diagnosis Differential Diagnoses: The differential diagnosis associated with the presentation includes (As noted above) Lab Data [facility] Lab Attestation statement: I reviewed the patient's lab results. (As noted above) Labs: Lab Results 10/02/23 Range/Units 19:41 COVID-19 (MI) Negative (Negative) COVID-19 Clin Com See Note Influenza Type A (SALLY) Positive A (Negative) Influenza Type B (SALLY) Negative (Negative) Influenza A & B Note See Note External Record Review External record reviewed: Outpatient record and Prior outpatient labs Tests considered The following testing was considered but not selected: Chest x-ray, deferred, see narrative above Prescription Management I considered prescription management with: Pain Medication and Antiviral Discharge Plan Discharge Clinical Impression: Influenza A, Migraine Patient Disposition: Home, Self-Care Instructions: Migraine Headache (ED), Influenza (ED) Additional Instructions: Please be certain to use alternative form of control while using Fioricet, this medication may decrease the effectiveness of your oral control medications. Additionally this medication may make you drowsy. Follow-up with your primary care provider as needed for persistent symptoms. Return back to emergency department any new or worsening symptoms or concerns. Prescriptions: New xzvyrnmzmk-aagwxfjqhjtyc-gcfq [Fioricet] 50-300-40 mg capsule 1 cap PO Q4-6H PRN (Reason: pain) Qty: 14 0RF ibuprofen 600 mg tablet 600 mg PO Q8H PRN (Reason: fever or pain) Qty: 30 0RF ondansetron 4 mg tablet,disintegrating 4 mg PO Q8H PRN (Reason: nausea and vomiting) Qty: 10 0RF No Action cetirizine 10 mg tablet 10 mg PO DAILY 30 Days Qty: 30 0RF cholecalciferol (vitamin D3) 1,250 mcg (50,000 unit) capsule 1,250 mcg PO QWEEK 90 Days Qty: 13 0RF amoxicillin-pot clavulanate 875-125 mg tablet 1 tab PO Q12H 7 Days Qty: 14 0RF fluconazole [Diflucan] 150 mg tablet 150 mg PO Q3D Qty: 2 0RF benzonatate 100 mg capsule 100 mg PO BID PRN (Reason: cough) 7 Days Qty: 14 0RF doxycycline hyclate 100 mg capsule 100 mg PO BID 10 Days Qty: 20 0RF benzonatate 100 mg capsule 100 mg PO BID PRN (Reason: cough) Qty: 20 0RF albuterol sulfate 90 mcg/actuation aerosol powdr breath activated 2 inh inhalation Q4-6H PRN (Reason: shortness of breath or wheezing) Qty: 1 0RF ketorolac 10 mg tablet 10 mg PO TID PRN (Reason: pain) 5 Days Qty: 15 0RF azithromycin 250 mg tablet See Rx Instructions .ROUTE .COMPLEX Qty: 6 0RF Rx Instructions: For 250 mg dose pack: take 500 mg today (day 1), then 250 mg for 4 days (days 2-5) fluconazole 150 mg tablet 150 mg PO Q3D Qty: 2 0RF amoxicillin-pot clavulanate 875-125 mg tablet 1 tab PO BID Qty: 14 0RF prednisone 20 mg tablet 20 mg PO BID Qty: 10 0RF ketorolac 10 mg tablet 10 mg PO TID PRN (Reason: pain) 5 Days Qty: 15 0RF diphenhydramine HCl [Benadryl] 25 mg capsule 25 mg PO TID PRN (Reason: allergic reaction) Qty: 20 0RF metoclopramide HCl [Reglan] 10 mg tablet 10 mg PO Q6H PRN (Reason: headache) Qty: 20 0RF Nexplanon 68 mg implant subdermal cephalexin 500 mg capsule 500 mg PO Q8H 10 Days Qty: 30 0RF meloxicam 15 mg tablet 15 mg PO DAILY Qty: 14 0RF valacyclovir [Valtrex] 500 mg tablet 500 mg PO BID 5 Days Qty: 90 4RF Rx Instructions: take twice a day for 3 days, repeat as needed Referrals: Roney Cleveland MD [Primary Care Provider] - Stand Alone Forms: Work/School Release Interventions: ED Discharge Assessment Last Done: 10/02/23 22:43 Discharge Date/Time: 10/02/23 22:43
[2023-10-02 20:00] LABS: COVID-19 Test Negative (Negative); IDNOW Serial# BCCEAD1C
[2023-10-02 20:01] LABS: IDNOW Serial# 08D9AD1C; Influenza A Positive (Negative); Influenza B2 Negative (Negative)
[2023-10-02] MEDS: Butalb/Acetamin/Caff 50/325/40 TABLET 1 TAB PO (20:32)
== END 2023-10-02 22:43 | disposition home or self-care (01) ==
PROVIDERS: Registered Nurse Emergency; Emergency Provider Emergency Medicine Emergency Medical Services; PCP Family Medicine
DX: J10.1 Influenza due to other identified influenza virus with other respiratory manifestations (principal); G43.909 Migraine, unspecified, not intractable, without status migrainosus; Z11.52 Encounter for screening for COVID-19
CPT/HCPCS: 87502; 87635; 99283; 99284